=== PATIENT | female | born 1980 | race African-American/Black ===

== ENCOUNTER 2022-04-19 13:23 | Inpatient (IN) | payer MEDICARE, MEDICAID, SELFPAY ==
--- NOTE | 2022-04-19 13:42 | MHC.CARE ---
Pt was seen by N David in the community and is a bedsearch
[2022-04-19 13:45] VITALS: BP 118/74; BP 150/81; PULSE 71; PULSE 78; RESP 18; TEMP 36.8; O2SAT 98; O2SAT 99; BMI 21.4
--- NOTE | 2022-04-19 13:46 | ECG_ITS ---
Test Reason : MED CLEARANCE Blood Pressure : / mmHG Vent. Rate : 072 BPM Atrial Rate : 072 BPM P-R Int : 124 ms QRS Dur : 078 ms QT Int : 392 ms P-R-T Axes : 056 014 034 degrees QTc Int : 429 ms Normal sinus rhythm with sinus arrhythmia Septal infarct , age undetermined Abnormal ECG No previous ECGs available Referred By: Gaby Castellanos Electronically Signed By:ELY MATIAS
[2022-04-19 14:17] LABS: Appearance Urine Clear; Color Urine Yellow; Glucose Urine UA Negative (Negative); Leukocyte Esterase Urine Negative (Negative); Nitrite Urine Negative (Negative); PH 5.5 (5.0-9.0); Specific Gravity - Urine 1.025 (1.005-1.025); UMIC TRIGGER UACC YES; Urine Blood Trace (Negative); Urine Ketones 15 mg/dL (Negative); Urine Protein Trace mg/dL (Neg-Trace)
[2022-04-19 14:19] LABS: Bacteria Urine Trace (None Seen); Hyaline Casts Urine 0-2 /LPF (0-2); UPreg QC Valid YES; WBC Urine 0-5 /HPF (0-5)
[2022-04-19 14:20] LABS: Urine Pregnancy NEGATIVE (NEGATIVE)
[2022-04-19 14:30] LABS: MANUAL DIFF FLAG NO
[2022-04-19 14:31] LABS: Basophils Absolute Auto 0.1 X10*3/uL (0.0-0.2); Basophils Percent Auto 1.1 % (0-2); Eosinophils Absolute Auto 0.1 X10*3/uL (0.0-0.4); Eosinophils Percent Auto 1.8 % (0-4); Hematocrit 45.3 % (37.0-47.0); Hemoglobin 14.9 g/dl (12.0-16.0); Imm Gran Abs Auto 0.01 X10*3/uL (0.00-0.03); Imm Gran Pct Auto 0.2 % (0.0-0.4); Lymphocytes Absolute Auto 1.4 X10*3/uL (1.2-4.9); Lymphocytes Percent Auto 32.5 % (20-40); Mean Corpuscular HGB Conc 32.9 g/dl (31.0-35.0); Mean Corpuscular Hemoglobin 28.8 pg (27.0-33.0); Mean Corpuscular Volume 87.5 fL (80.0-98.0); Mean Platelet Volume 10.3 fL (9.4-12.3); Monocytes Absolute Auto 0.4 X10*3/uL (0.1-1.2); Monocytes Percent Auto 8.8 % (2-11); Neutrophils Absolute Auto 2.5 x10*3/uL (2.0-8.3); Neutrophils Percent Auto 55.6 % (45-73); Platelet Count 332 X10*3/uL (160-400); Red Blood Count 5.18 X10*6/uL (4.20-5.50); Red Cell Distribution Width 13.7 % (11.0-16.0); White Blood Count 4.4 X10*3/uL (4.8-10.8)
--- NOTE | 2022-04-19 14:33 | ED_ITS ---
HPI - Psych General Chief Complaint: Psychiatric Symptoms Stated Complaint: SI Time Seen by Provider: 04/19/22 13:45 Source: patient Mode of arrival: EMS Limitations: no limitations History of Present Illness HPI Narrative: Patient presents to the emergency department via EMS on a [address]. Patient presented to crisis office with a suicidal ideations and a plan to overdose on her medications. Patient with a history of schizophrenia and PTSD. Patient is unable to specify how long she has been feeling this way. It is difficult to obtain much history from patient as she appears to be responding to internal stimuli, difficulty concentrating on questions. Denies any physical complaints, denies pain. Denies any ill symptoms recently. Related Data Home Medications Medication Instructions Recorded Confirmed Acetaminophen Er 650 mg PO Q8H PRN Pain 04/19/22 04/19/22 albuterol sulfate 90 mcg/actuation 2 puff inhalation QID PRN Wheezing 04/19/22 04/19/22 aerosol inhaler aripiprazole 5 mg tablet (Abilify) 5 mg PO DAILY 04/19/22 04/19/22 epinephrine 0.3 mg/0.3 mL 0.3 mg IM Q4H PRN Anaphylaxis 04/19/22 04/19/22 injection, auto-injector fluticasone propionate 50 1 spray intranasal BID 04/19/22 04/19/22 mcg/actuation nasal spray,suspension Allergies Allergy/AdvReac Type Severity Reaction Status Date / Time banana Allergy Unknown Verified 04/19/22 13:45 grape Allergy Unknown Verified 04/19/22 13:45 shellfish derived Allergy Anaphylaxis Verified 04/19/22 13:45 Review of Systems Review of Systems: Yes Unobtainable due to mental status (difficulty responding to ROS questions, responding to internal stimuli) FORMERLY [facility], [facility] Past Medical History Attestation statement: The following information was validated with the patient. Social History Social History Advance Directives: No Advance Directives Information Provided: No Patient : No Physical Exam Vital Signs: Vital Signs: Last Vital Signs Temp 97.8 F 04/19/22 19:45 Pulse 78 04/19/22 19:45 Resp 15 04/19/22 19:45 BP 138/90 H 04/19/22 19:45 Pulse Ox 98 04/19/22 19:45 O2 Del Method 04/19/22 19:45 BMI result Body Mass Index 21.4 Appearance: Alert.?Oriented to person, place and time. No acute distress.? Was responding to internal stimuli Eyes: Pupils equal, round and reactive to light.? ENT: Pharynx normal.?? Neck: Normal inspection.? Neck supple.?? CVS: Heart sounds normal. Normal heart rate and rhythm.? Pulses normal.?? Respiratory: No respiratory distress.? Lung sounds clear to auscultation bilaterally?? Abdomen: Soft and non-tender. Normoactive bowel sounds? Skin: Skin warm and dry.? Normal skin color.? ?? Extremities: No lower extremity edema.?? Neuro: Moves all extremities spontaneously. Sensation intact bilaterally. CN II- XII intact. No focal neuro deficits. Ambulates with normal steady gait. Course Course Course Narrative: Patient is a 41-year-old female with a past medical history of schizophrenia and PTSD presenting to the emergency department for suicidal ideations with a plan to overdose on medications. She is vague at providing history, she appears to be responding to internal stimuli throughout majority of the time speaking with patient. Does not appear so patient has been to this hospital in the past, no medical records available for review. Uncertain whether any past suicide attempts have been made. Will obtain basic labs for medical clearance, uri nalysis, urine test, KIM in ethanol level. Patient will need to be referred to [facility] for further evaluation and safe disposition. Reevaluation(s) Reevaluation #1: Labs are overall unremarkable. COVID-19 testing is negative. Alcohol level is negative. Drug of abuse screen is negative. Patient currently in no apparent distress. Respirations are regular even and nonlabored. Patient speaking clearly. Patient will be placed in physician observation. The reason for observation is that patient requires additional time to be evaluated by behavioral health team for safe disposition planning giving her suicidal ideations. Time: 15:14 [facility] - Psych Medical Records Attestation: I reviewed the patient's medical records. Lab Data Attestation: I reviewed the patient's lab results. Result diagrams: 04/19/22 14:22 04/19/22 14:22 Labs: Lab Results 04/19/22 04/19/22 04/19/22 Range/Units 14:08 14:08 14:08 WBC (4.8-10.8) X10*3/uL RBC (4.20-5.50) X10*6/uL Hgb (12.0-16.0) g/dl Hct (37.0-47.0) % MCV (80.0-98.0) fL MCH (27.0-33.0) pg MCHC (31.0-35.0) g/dl RDW (11.0-16.0) % Plt Count (160-400) X10*3/uL MPV (9.4-12.3) fL Immature Gran % (Auto) (0.0-0.4) % Neut % (Auto) (45-73) % Lymph % (Auto) (20-40) % [place] % (Auto) (2-11) % Eos % (Auto) (0-4) % Baso % (Auto) (0-2) % Lymph # (Auto) (1.2-4.9) X10*3/uL [place] # (Auto) (0.1-1.2) X10*3/uL Eos # (Auto) (0.0-0.4) X10*3/uL Baso # (Auto) (0.0-0.2) X10*3/uL Abs Immat Gran (auto) (0.00-0.03) X10*3/uL Absolute Neuts (auto) (2.0-8.3) x10*3/uL Absolute Nucleated RBC (0.0-0.012) X10*3/uL Nucleated RBC % (auto) (0.0-0.2) /100WBC Sodium (135-145) mmol/L Potassium (3.3-5.1) mmol/L Chloride (96-108) mmol/L Carbon Dioxide (22-29) mmol/L Anion Gap (12-20) BUN (9-16) mg/dL Creatinine (0.5-1.4) mg/dL Estim Creat Clear Calc Estimated GFR Random Glucose (60-115) mg/dL Calcium (8.4-10.2) mg/dL Total Bilirubin (0.0-1.0) mg/dL AST (5-31) U/L ALT (0-31) U/L Alkaline Phosphatase (39-117) U/L Total Protein (6.5-8.0) g/dL Albumin (3.5-5.0) g/dL Urine Color Yellow Urine Appearance Clear Urine pH 5.5 (5.0-9.0) Ur Specific [place] 1.025 (1.005-1.025) Urine Protein Trace (Neg-Trace) mg/dL Urine Glucose (UA) Negative (Negative) mg/dL Urine Ketones 15 (Negative) mg/dL Urine Blood Trace H (Negative) Urine Nitrite Negative (Negative) Ur Leukocyte Esterase Negative (Negative) Urine RBC 6-10 H (0-2) /HPF Urine WBC 0-5 (0-5) /HPF Ur Squamous Epith Cells 3-5 (0-2) /HPF Urine Bacteria Trace (None Seen) Hyaline Casts 0-2 (0-2) /LPF Urine Test NEGATIVE (NEGATIVE) Urine Opiates Screen (Not Detect) Urine Fentanyl Screen (Not Detect) Ur Barbiturates Screen (Not Detect) Ur Phencyclidine Scrn (Not Detect) Ur Amphetamines Screen (Not Detect) U Benzodiazepines Scrn (Not Detect) Urine Cocaine Screen (Not Detect) U Marijuana (THC) Screen (Not Detect) Ethyl Alcohol mg/dL COVID-19 (MELINA) Negative (Negative) COVID-19 Clin Com See Note 04/19/22 04/19/22 04/19/22 Range/Units 14:08 14:22 14:22 WBC 4.4 L (4.8-10.8) X10*3/uL RBC 5.18 (4.20-5.50) X10*6/uL Hgb 14.9 (12.0-16.0) g/dl Hct 45.3 (37.0-47.0) % MCV 87.5 (80.0-98.0) fL MCH 28.8 (27.0-33.0) pg MCHC 32.9 (31.0-35.0) g/dl RDW 13.7 (11.0-16.0) % Plt Count 332 (160-400) X10*3/uL MPV 10.3 (9.4-12.3) fL Immature Gran % (Auto) 0.2 (0.0-0.4) % Neut % (Auto) 55.6 (45-73) % Lymph % (Auto) 32.5 (20-40) % [place] % (Auto) 8.8 (2-11) % Eos % (Auto) 1.8 (0-4) % Baso % (Auto) 1.1 (0-2) % Lymph # (Auto) 1.4 (1.2-4.9) X10*3/uL [place] # (Auto) 0.4 (0.1-1.2) X10*3/uL Eos # (Auto) 0.1 (0.0-0.4) X10*3/uL Baso # (Auto) 0.1 (0.0-0.2) X10*3/uL Abs Immat Gran (auto) 0.01 (0.00-0.03) X10*3/uL Absolute Neuts (auto) 2.5 (2.0-8.3) x10*3/uL Absolute Nucleated RBC 0.000 (0.0-0.012) X10*3/uL Nucleated RBC % (auto) 0.0 (0.0-0.2) /100WBC Sodium 141 (135-145) mmol/L Potassium 3.8 (3.3-5.1) mmol/L Chloride 104 (96-108) mmol/L Carbon Dioxide 24 (22-29) mmol/L Anion Gap 17 (12-20) BUN 14 (9-16) mg/dL Creatinine 0.83 (0.5-1.4) mg/dL Estim Creat Clear Calc 64.0 Estimated GFR > 60 Random Glucose 90 (60-115) mg/dL Calcium 9.6 (8.4-10.2) mg/dL Total Bilirubin 0.6 (0.0-1.0) mg/dL AST 15 (5-31) U/L ALT 15 (0-31) U/L Alkaline Phosphatase 70 (39-117) U/L Total Protein 7.5 (6.5-8.0) g/dL Albumin 4.4 (3.5-5.0) g/dL Urine Color Urine Appearance Urine pH (5.0-9.0) Ur Specific [place] (1.005-1.025) Urine Protein (Neg-Trace) mg/dL Urine Glucose (UA) (Negative) mg/dL Urine Ketones (Negative) mg/dL Urine Blood (Negative) Urine Nitrite (Negative) Ur Leukocyte Esterase (Negative) Urine RBC (0-2) /HPF Urine WBC (0-5) /HPF Ur Squamous Epith Cells (0-2) /HPF Urine Bacteria (None Seen) Hyaline Casts (0-2) /LPF Urine Test (NEGATIVE) Urine Opiates Screen Not Detected (Not Detect) Urine Fentanyl Screen Not Detected (Not Detect) Ur Barbiturates Screen Not Detected (Not Detect) Ur Phencyclidine Scrn Not Detected (Not Detect) Ur Amphetamines Screen Not Detected (Not Detect) U Benzodiazepines Scrn Not Detected (Not Detect) Urine Cocaine Screen Not Detected (Not Detect) U Marijuana (THC) Screen Not Detected (Not Detect) Ethyl Alcohol < 10 mg/dL COVID-19 (MELINA) (Negative) COVID-19 Clin Com Discharge Plan Discharge Clinical Impression: Schizophrenia, PTSD (post-traumatic stress disorder), Suicidal ideation Patient Disposition: Still a Patient Prescriptions: No Action Acetaminophen Er 650 mg PO Q8H PRN (Reason: Pain) epinephrine 0.3 mg/0.3 mL Auto-Injector 0.3 mg IM Q4H PRN (Reason: Anaphylaxis) albuterol sulfate 90 mcg/actuation Hfa Aerosol Inhaler 2 puff INHALATION QID PRN (Reason: Wheezing) fluticasone propionate 50 mcg/actuation [place],Suspension 1 spray INTRANASAL BID Rx Instructions: administer into each nostril aripiprazole [Abilify] 5 mg Tablet 5 mg PO DAILY
[2022-04-19 14:38] LABS: Benzodiazepines Screen Urine Not Detected (Not Detect); Cannabinoid Screen Urine Not Detected (Not Detect); Fentanyl, urine Not Detected (Not Detect); Phencyclidine Screen Urine Not Detected (Not Detect)
[2022-04-19 14:40] LABS: Amphetamine Screen Urine Not Detected (Not Detect); Barbiturates, Urine Not Detected (Not Detect); Cocaine Screen Urine Not Detected (Not Detect); Opiate Screen Urine Not Detected (Not Detect)
[2022-04-19 14:46] LABS: COVID-19 Test Negative (Negative); IDNOW Serial# 9DB6401D
[2022-04-19 14:50] LABS: Alanine Aminotransferase 15 U/L (0-31); Albumin Level 4.4 g/dL (3.5-5.0); Alkaline Phosphatase 70 U/L (39-117); Anion Gap 17 (12-20); Aspartate Amino Transferase 15 U/L (5-31); Bilirubin Total 0.6 mg/dL (0.0-1.0); Blood Urea Nitrogen 14 mg/dL (9-16); Calcium 9.6 mg/dL (8.4-10.2); Carbon Dioxide 24 mmol/L (22-29); Chloride 104 mmol/L (96-108); Estimated Glomerular Filt Rate > 60; Ethanol < 10 mg/dL; Glucose Random 90 mg/dL (60-115); Potassium 3.8 mmol/L (3.3-5.1); Sodium 141 mmol/L (135-145); Total Protein 7.5 g/dL (6.5-8.0)
[2022-04-19 16:00] VITALS: RESP 16
--- NOTE | 2022-04-19 16:03 | PHA.MEDREC ---
Pharmacy Consult ? Medication Reconciliation Pharmacy has completed the medication reconciliation.
--- NOTE | 2022-04-19 17:25 | PC.NURSE ---
Contact made by Thierry from [facility]. Per Thierry, pt is to be accepted to [facility] today at some point, no eta
[2022-04-19] MEDS: ARIPiprazole 5 MG TABLET PO (19:36)
[2022-04-19 19:45] VITALS: BP 138/90; PULSE 78; RESP 15; TEMP 36.6; O2SAT 98
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
[2022-04-19] MEDS: hydrOXYzine HCL 25 MG TABLET PO (23:13)
--- NOTE | 2022-04-20 | ECG_ITS ---
Test Reason : ? septal infarct Blood Pressure : / mmHG Vent. Rate : 077 BPM Atrial Rate : 077 BPM P-R Int : 132 ms QRS Dur : 084 ms QT Int : 368 ms P-R-T Axes : 062 010 039 degrees QTc Int : 416 ms Normal sinus rhythm Septal infarct (cited on or before 19-APR-2022) Abnormal ECG When compared with ECG of 19-APR-2022 14:30, No significant change was found Referred By: Leigh Robin Electronically Signed By:ELY MATIAS
[2022-04-20] MEDS: ARIPiprazole 5 MG TABLET PO (09:22)
[2022-04-20 09:27] VITALS: BP 133/96; PULSE 94; RESP 17; TEMP 36.6; O2SAT 100
[2022-04-20 09:45] LABS: Estimated Average Glucose 114 mg/dL; Hemoglobin A1c % 5.6 %
[2022-04-20 09:55] LABS: Cholesterol 179 mg/dL; HDL Cholesterol 48 mg/dL; LDL Cholesterol Calculated 121 mg/dl; Magnesium 1.9 mg/dL (1.6-2.6); Triglycerides 50 mg/dL
[2022-04-20 10:18] LABS: Free T4 (Free Thyroxine) 1.19 ng/dL (0.71-1.85); Thyroid Stimulating Hormone 0.74 uIU/mL (0.32-4.0)
--- NOTE | 2022-04-20 10:35 | P.HPPS_ITS ---
HPI Date of Service: 04/20/22 Chief Complaint: SI, Depression Sources of Information: patient interviewed, chart reviewed and crisis/core team assessment reviewed HPI Subjective Notes: Evans Warning and Conditional Voluntary Narrative: Ms. Castellano is a 41 year-old woman with hx of schizophrenia. Pt was assessed by [facility] crisis after she called them and reported struggling with life, something is not right. Pt expressed suicidal ideation with vague plan. However, pt apparently presented as disorganized, delayed response rate, internally preoccupied. Her utox was neg in th ED. On the unit, pt presents as initially guarded and suspicious of this process description writer. She is at times seen laughing inappropriately. She is very suspicious about me dications. She reports she was feeling depressed, I was going through somethings. She would not elaborate as to what stressors she had. She then reports when can I go home? She denies VH/AH but appears internally preoccupied. Her speech is disorganized and she is unable to provide much information about events leading to this admission or past psychiatric history or her current supports in the community. She denies any plan or intent to hurt herself. Pt often scanning the room, guarded when staff approaches her, somewhat hypervigilant, but no overt delusional content reported. Past Psychiatric History: Inpatient: 2000, 1998 somewhere in [place]. Respite N: 04/07-04/10 left AMA. Medical Evaluation Reviewed: Yes repeat EGK- shows septal infact no s/s of acute infart- did order troponin <3.5 PMFSH Family History: unknown Social History: lives along in apartment. She has never been nor she has children. Apparently she does work at [employer]. Substance History: none Trauma History: none disclosed. Diagnostics Vital Signs (24Hr): Vital Signs - 24 hr 04/19/22 13:45 04/19/22 16:00 04/19/22 19:45 Temperature 98.3 F 97.8 F Pulse Rate 71 78 Respiratory Rate 18 16 15 Blood Pressure 150/81 H 138/90 H Pulse Oximetry 99 98 Oxygen Delivery Method Room Air Room Air 04/20/22 09:27 Temperature 97.8 F Pulse Rate 94 Respiratory Rate 17 Blood Pressure 133/96 H Pulse Oximetry 100 Oxygen Delivery Method Room Air BMI result Body Mass Index 21.4 Labs Results: 04/19/22 14:22 04/19/22 14:22 Labs: Laboratory Results - last 48 hr 04/19/22 04/19/22 04/19/22 14:08 14:08 14:08 WBC RBC Hgb Hct MCV MCH MCHC RDW Plt Count MPV Immature Gran % (Auto) Neut % (Auto) Lymph % (Auto) [place] % (Auto) Eos % (Auto) Baso % (Auto) Lymph # (Auto) [place] # (Auto) Eos # (Auto) Baso # (Auto) Abs Immat Gran (auto) Absolute Neuts (auto) Absolute Nucleated RBC Nucleated RBC % (auto) Sodium Potassium Chloride Carbon Dioxide Anion Gap BUN Creatinine Estim Creat Clear Calc Estimated GFR Random Glucose Estimat Average Glucose Hemoglobin A1c % Calcium Magnesium Total Bilirubin AST ALT Alkaline Phosphatase Total Protein Albumin Triglycerides Cholesterol LDL Cholesterol, Calc HDL Cholesterol TSH Free T4 Urine Color Yellow Urine Appearance Clear Urine pH 5.5 Ur Specific [place] 1.025 Urine Protein Trace Urine Glucose (UA) Negative Urine Ketones 15 Urine Blood Trace H Urine Nitrite Negative Ur Leukocyte Esterase Negative Urine RBC 6-10 H Urine WBC 0-5 Ur Squamous Epith Cells 3-5 Urine Bacteria Trace Hyaline Casts 0-2 Urine Test NEGATIVE Urine Opiates Screen Urine Fentanyl Screen Ur Barbiturates Screen Ur Phencyclidine Scrn Ur Amphetamines Screen U Benzodiazepines Scrn Urine Cocaine Screen U Marijuana (THC) Screen Ethyl Alcohol COVID-19 (MELINA) Negative COVID-19 Clin Com See Note 04/19/22 04/19/22 04/19/22 14:08 14:22 14:22 WBC 4.4 L RBC 5.18 Hgb 14.9 Hct 45.3 MCV 87.5 MCH 28.8 MCHC 32.9 RDW 13.7 Plt Count 332 MPV 10.3 Immature Gran % (Auto) 0.2 Neut % (Auto) 55.6 Lymph % (Auto) 32.5 [place] % (Auto) 8.8 Eos % (Auto) 1.8 Baso % (Auto) 1.1 Lymph # (Auto) 1.4 [place] # (Auto) 0.4 Eos # (Auto) 0.1 Baso # (Auto) 0.1 Abs Immat Gran (auto) 0.01 Absolute Neuts (auto) 2.5 Absolute Nucleated RBC 0.000 Nucleated RBC % (auto) 0.0 Sodium 141 Potassium 3.8 Chloride 104 Carbon Dioxide 24 Anion Gap 17 BUN 14 Creatinine 0.83 Estim Creat Clear Calc 64.0 Estimated GFR > 60 Random Glucose 90 Estimat Average Glucose Hemoglobin A1c % Calcium 9.6 Magnesium Total Bilirubin 0.6 AST 15 ALT 15 Alkaline Phosphatase 70 Total Protein 7.5 Albumin 4.4 Triglycerides Cholesterol LDL Cholesterol, Calc HDL Cholesterol TSH Free T4 Urine Color Urine Appearance Urine pH Ur Specific [place] Urine Protein Urine Glucose (UA) Urine Ketones Urine Blood Urine Nitrite Ur Leukocyte Esterase Urine RBC Urine WBC Ur Squamous Epith Cells Urine Bacteria Hyaline Casts Urine Test Urine Opiates Screen Not Detected Urine Fentanyl Screen Not Detected Ur Barbiturates Screen Not Detected Ur Phencyclidine Scrn Not Detected Ur Amphetamines Screen Not Detected U Benzodiazepines Scrn Not Detected Urine Cocaine Screen Not Detected U Marijuana (THC) Screen Not Detected Ethyl Alcohol < 10 COVID-19 (MELINA) COVID-19 [employer] 04/20/22 04/20/22 08:48 08:48 WBC RBC Hgb Hct MCV MCH MCHC RDW Plt Count MPV Immature Gran % (Auto) Neut % (Auto) Lymph % (Auto) [place] % (Auto) Eos % (Auto) Baso % (Auto) Lymph # (Auto) [place] # (Auto) Eos # (Auto) Baso # (Auto) Abs Immat Gran (auto) Absolute Neuts (auto) Absolute Nucleated RBC Nucleated RBC % (auto) Sodium Potassium Chloride Carbon Dioxide Anion Gap BUN Creatinine Estim Creat Clear Calc Estimated GFR Random Glucose Estimat Average Glucose 114 Hemoglobin A1c % 5.6 Calcium Magnesium 1.9 Total Bilirubin AST ALT Alkaline Phosphatase Total Protein Albumin Triglycerides 50 Cholesterol 179 LDL Cholesterol, Calc 121 HDL Cholesterol 48 TSH 0.74 Free T4 1.19 Urine Color Urine Appearance Urine pH Ur Specific [place] Urine Protein Urine Glucose (UA) Urine Ketones Urine Blood Urine Nitrite Ur Leukocyte Esterase Urine RBC Urine WBC Ur Squamous Epith Cells Urine Bacteria Hyaline Casts Urine Test Urine Opiates Screen Urine Fentanyl Screen Ur Barbiturates Screen Ur Phencyclidine Scrn Ur Amphetamines Screen U Benzodiazepines Scrn Urine Cocaine Screen U Marijuana (THC) Screen Ethyl Alcohol COVID-19 (MELINA) COVID-19 [employer] Meds/Allergies Meds Home Medications Medication Instructions Recorded Confirmed Type Acetaminophen Er 650 mg PO Q8H PRN Pain 04/19/22 04/19/22 History albuterol sulfate 90 mcg/actuation 2 puff inhalation QID PRN Wheezing 04/19/22 04/19/22 History aerosol inhaler aripiprazole 5 mg tablet (Abilify) 5 mg PO DAILY 04/19/22 04/19/22 History epinephrine 0.3 mg/0.3 mL 0.3 mg IM Q4H PRN Anaphylaxis 04/19/22 04/19/22 History injection, auto-injector fluticasone propionate 50 1 spray intranasal BID 04/19/22 04/19/22 History mcg/actuation nasal spray,suspension Allergies Allergies Allergy/AdvReac Type Severity Reaction Status Date / Time banana Allergy Unknown Verified 04/19/22 13:45 grape Allergy Unknown Verified 04/19/22 13:45 shellfish derived Allergy Anaphylaxis Verified 04/19/22 13:45 Mental Status Exam Mental Status Exam Narrative: Appearance: wearing hospital gown, fair hygiene in NAD Behavior: guarded psychomotor:some retardation noted Speech: mumble, soft tone, minimally spontaneous Thought process:disorganized, Thought content:feeling depressed, but now not so much, asking when she could go home Mood: depressed Affect: constricted, at times laughing inappropriately as if responding to internal stimuli SI:none HI:none VH/AH: denies but appears internally preoccupied Delusions:appears paranoid Insight/judgment:poor x 2. Memory/cog: alert, oriented x3. not formally tested Assessment & Plan Assessment & Plan (1) Schizophrenia: Status: Acute Code(s): F20.9 - Schizophrenia, unspecified Plan Ms. Castellano is a 41 year-old woman with hx of schizophrenia. Per [facility] records she initially called [facility] reporting suicidal ideation. Her reports as to why she feels depressed and other factors affecting her mood were vague, and she appeared internally preoccupied. In the ED utox negative. On the unit presents as guarded suspicious with episodes of laughing inappropriately at times, appears internally preoccupied. EKG showed septal infarct, troponin completed less than 3.5, no s/s of acute pathology at this point. We discussed risks, benefits and alternative treatment options, will start risperidone, ativan. PLAN 1. Admit M3, CV, 15 minutes checks for safety. 2. start risperidone 1mg po BID, ativan 0.5mg po BID 3. obtain collateral information 4. Aftercare planning. Patient educated on: diagnosis Reason for continued inpatient stay Substantial Risk for: harm to self and inability to function
[2022-04-20 10:38] LABS: Folate 9.8 ng/mL (> or = 4.0); Vitamin B12 375 pg/mL (200-900)
[2022-04-20 14:57] LABS: Troponin-I High Sensitivity < 3.5 ng/L (<3.5-17.0)
[2022-04-20 21:00] VITALS: BP 138/83; PULSE 83; RESP 16; TEMP 36.4
[2022-04-20] MEDS: LORazepam 0.5 MG TABLET PO (22:20)
[2022-04-20] MEDS: risperiDONE 1 MG TABLET PO (22:21)
[2022-04-21 08:30] VITALS: BP 112/77; PULSE 106; RESP 18; TEMP 36.5; O2SAT 99
[2022-04-21] MEDS: risperiDONE 1 MG TABLET PO (08:58)
[2022-04-21] MEDS: LORazepam 0.5 MG TABLET PO ×2 (08:58→22:43)
--- NOTE | 2022-04-21 11:30 | P.PNPSI_ITS ---
Subjective Subjective Date of Service: 04/21/22 Reason For Visit: SI, Depression Subjective Notes: Conditional Voluntary Interim History: The nursing staff reported the patient has attended to a few groups she looks anxious and confused with minimal response. On interview the patient reports that she feels over-sedated will risperidone 1 mg p.o. b.i.d.. We discussed options and she agreed to change to risperidone everything at night so she will be more awake during the day. She denies active suicidal ideation or auditory hallucinations but she looks internally preoccupied. Mental Status Exam Mental Status Exam Patient Appearance: Appropriate Patient Orientation: Person, Place and Situation Level of Consciousness: Awake Patient Behavior: Cooperative Mood Description: Withdrawn Affect Description: Constricted Patient Cognition Impaired: No Ability to Follow Directions: Good Speech Pattern: Clear Hallucinations: None Delusions: Paranoid Ideation Thought Process: Confusion Thought Content: positive for [place] and positive for Circumstantial Judgement: Fair Diagnostics Vital Signs (24Hr): Vital Signs - 24 hr 04/20/22 21:00 04/21/22 08:30 Temperature 97.6 F 97.7 F Pulse Rate 83 106 H Respiratory Rate 16 18 Blood Pressure 138/83 112/77 Pulse Oximetry 99 Oxygen Delivery Method Room Air BMI result Body Mass Index 21.4 Labs Results: 04/19/22 14:22 04/19/22 14:22 Labs: Laboratory Results - last 48 hr 04/19/22 04/19/22 04/19/22 14:08 14:08 14:08 WBC RBC Hgb Hct MCV MCH MCHC RDW Plt Count MPV Immature Gran % (Auto) Neut % (Auto) Lymph % (Auto) [place] % (Auto) Eos % (Auto) Baso % (Auto) Lymph # (Auto) [place] # (Auto) Eos # (Auto) Baso # (Auto) Abs Immat Gran (auto) Absolute Neuts (auto) Absolute Nucleated RBC Nucleated RBC % (auto) Sodium Potassium Chloride Carbon Dioxide Anion Gap BUN Creatinine Estim Creat Clear Calc Estimated GFR Random Glucose Estimat Average Glucose Hemoglobin A1c % Calcium Magnesium Total Bilirubin AST ALT Alkaline Phosphatase Troponin I High Sens Total Protein Albumin Triglycerides Cholesterol LDL Cholesterol, Calc HDL Cholesterol Vitamin B12 Folate TSH Free T4 Urine Color Yellow Urine Appearance Clear Urine pH 5.5 Ur Specific [place] 1.025 Urine Protein Trace Urine Glucose (UA) Negative Urine Ketones 15 Urine Blood Trace H Urine Nitrite Negative Ur Leukocyte Esterase Negative Urine RBC 6-10 H Urine WBC 0-5 Ur Squamous Epith Cells 3-5 Urine Bacteria Trace Hyaline Casts 0-2 Urine Test NEGATIVE Urine Opiates Screen Urine Fentanyl Screen Ur Barbiturates Screen Ur Phencyclidine Scrn Ur Amphetamines Screen U Benzodiazepines Scrn Urine Cocaine Screen U Marijuana (THC) Screen Ethyl Alcohol COVID-19 ([facility]) Negative COVID-19 Clin Com See Note 04/19/22 04/19/22 04/19/22 14:08 14:22 14:22 WBC 4.4 L RBC 5.18 Hgb 14.9 Hct 45.3 MCV 87.5 MCH 28.8 MCHC 32.9 RDW 13.7 Plt Count 332 MPV 10.3 Immature Gran % (Auto) 0.2 Neut % (Auto) 55.6 Lymph % (Auto) 32.5 [place] % (Auto) 8.8 Eos % (Auto) 1.8 Baso % (Auto) 1.1 Lymph # (Auto) 1.4 [place] # (Auto) 0.4 Eos # (Auto) 0.1 Baso # (Auto) 0.1 Abs Immat Gran (auto) 0.01 Absolute Neuts (auto) 2.5 Absolute Nucleated RBC 0.000 Nucleated RBC % (auto) 0.0 Sodium 141 Potassium 3.8 Chloride 104 Carbon Dioxide 24 Anion Gap 17 BUN 14 Creatinine 0.83 Estim Creat Clear Calc 64.0 Estimated GFR > 60 Random Glucose 90 Estimat Average Glucose Hemoglobin A1c % Calcium 9.6 Magnesium Total Bilirubin 0.6 AST 15 ALT 15 Alkaline Phosphatase 70 Troponin I High Sens Total Protein 7.5 Albumin 4.4 Triglycerides Cholesterol LDL Cholesterol, Calc HDL Cholesterol Vitamin B12 Folate TSH Free T4 Urine Color Urine Appearance Urine pH Ur Specific [place] Urine Protein Urine Glucose (UA) Urine Ketones Urine Blood Urine Nitrite Ur Leukocyte Esterase Urine RBC Urine WBC Ur Squamous Epith Cells Urine Bacteria Hyaline Casts Urine Test Urine Opiates Screen Not Detected Urine Fentanyl Screen Not Detected Ur Barbiturates Screen Not Detected Ur Phencyclidine Scrn Not Detected Ur Amphetamines Screen Not Detected U Benzodiazepines Scrn Not Detected Urine Cocaine Screen Not Detected U Marijuana (THC) Screen Not Detected Ethyl Alcohol < 10 COVID-19 ([facility]) COVID-19 Clin Com 04/20/22 04/20/22 04/20/22 08:48 08:48 08:48 WBC RBC Hgb Hct MCV MCH MCHC RDW Plt Count MPV Immature Gran % (Auto) Neut % (Auto) Lymph % (Auto) [place] % (Auto) Eos % (Auto) Baso % (Auto) Lymph # (Auto) [place] # (Auto) Eos # (Auto) Baso # (Auto) Abs Immat Gran (auto) Absolute Neuts (auto) Absolute Nucleated RBC Nucleated RBC % (auto) Sodium Potassium Chloride Carbon Dioxide Anion Gap BUN Creatinine Estim Creat Clear Calc Estimated GFR Random Glucose Estimat Average Glucose 114 Hemoglobin A1c % 5.6 Calcium Magnesium 1.9 Total Bilirubin AST ALT Alkaline Phosphatase Troponin I High Sens Total Protein Albumin Triglycerides 50 Cholesterol 179 LDL Cholesterol, Calc 121 HDL Cholesterol 48 Vitamin B12 375 Folate 9.8 TSH 0.74 Free T4 1.19 Urine Color Urine Appearance Urine pH Ur Specific [place] Urine Protein Urine Glucose (UA) Urine Ketones Urine Blood Urine Nitrite Ur Leukocyte Esterase Urine RBC Urine WBC Ur Squamous Epith Cells Urine Bacteria Hyaline Casts Urine Test Urine Opiates Screen Urine Fentanyl Screen Ur Barbiturates Screen Ur Phencyclidine Scrn Ur Amphetamines Screen U Benzodiazepines Scrn Urine Cocaine Screen U Marijuana (THC) Screen Ethyl Alcohol COVID-19 ([facility]) COVID-[facility] 04/20/22 14:30 WBC RBC Hgb Hct MCV MCH MCHC RDW Plt Count MPV Immature Gran % (Auto) Neut % (Auto) Lymph % (Auto) [place] % (Auto) Eos % (Auto) Baso % (Auto) Lymph # (Auto) [place] # (Auto) Eos # (Auto) Baso # (Auto) Abs Immat Gran (auto) Absolute Neuts (auto) Absolute Nucleated RBC Nucleated RBC % (auto) Sodium Potassium Chloride Carbon Dioxide Anion Gap BUN Creatinine Estim Creat Clear Calc Estimated GFR Random Glucose Estimat Average Glucose Hemoglobin A1c % Calcium Magnesium Total Bilirubin AST ALT Alkaline Phosphatase Troponin I High Sens < 3.5 Total Protein Albumin Triglycerides Cholesterol LDL Cholesterol, Calc HDL Cholesterol Vitamin B12 Folate TSH Free T4 Urine Color Urine Appearance Urine pH Ur Specific [place] Urine Protein Urine Glucose (UA) Urine Ketones Urine Blood Urine Nitrite Ur Leukocyte Esterase Urine RBC Urine WBC Ur Squamous Epith Cells Urine Bacteria Hyaline Casts Urine Test Urine Opiates Screen Urine Fentanyl Screen Ur Barbiturates Screen Ur Phencyclidine Scrn Ur Amphetamines Screen U Benzodiazepines Scrn Urine Cocaine Screen U Marijuana (THC) Screen Ethyl Alcohol COVID-19 ([facility]ELINA) COVID-19 [employer] Com Medications Medications Current Medications Acetaminophen (Acetaminophen 325 Mg Tablet) 650 mg PO Q8H PRN PRN Reason: Pain, Moderate (Pain Scale 4-6 Al Hydroxide/Mg Hydroxide (Magnesium Hydrox/Alum Hydrox 30 Ml Oral.Susp) 30 ml PO Q6H PRN PRN Reason: Heartburn/Nausea Albuterol Sulfate (Albuterol Sulfate 90 Mcg 8 Gm Inhaler) 2 puff INHALE QID PRN PRN Reason: Wheezing Fluticasone Propionate (Fluticasone Propionate Nasal 16 Gm [place]) 1 spray NOSTRIL-B BID [facility] Last Admin: 04/20/22 22:30 Dose: Not Given Hydroxyzine HCl (Hydroxyzine Hcl 25 Mg Tablet) 25 mg PO Q6H PRN PRN Reason: Anxiety Last Admin: 04/19/22 23:13 Dose: 25 mg Lorazepam (Lorazepam 0.5 Mg Tablet) 0.5 mg PO BID [facility] Last Admin: 04/21/22 08:58 Dose: 0.5 mg Magnesium Hydroxide (Milk Of Magnesia 30 Ml Oral.Susp) 30 ml PO DAILY PRN PRN Reason: Constipation Risperidone (Risperidone 1 Mg Tablet) 1 mg PO BID [facility] Last Admin: 04/21/22 08:58 Dose: 1 mg Trazodone HCl (Trazodone Hcl 50 Mg Tablet) 50 mg PO BEDTIME PRN PRN Reason: Insomnia Allergies Allergies Allergy/AdvReac Type Severity Reaction Status Date / Time banana Allergy Unknown Verified 04/19/22 13:45 grape Allergy Unknown Verified 04/19/22 13:45 shellfish derived Allergy Anaphylaxis Verified 04/19/22 13:45 Assessment & Plan Assessment & Plan (1) Schizophrenia: Status: Acute Code(s): F20.9 - Schizophrenia, unspecified Plan Ms. Castellano is a 41 year-old woman with hx of schizophrenia. Per [facility] records she initially called [facility] reporting suicidal ideation. Her reports as to why she feels depressed and other factors affecting her mood were vague, and she appeared internally preoccupied. In the ED utox negative. On the unit presents as guarded suspicious with episodes of laughing inappropriately at times, appears internally preoccupied. EKG showed septal infarct, troponin completed less than 3.5, no s/s of acute pathology at this point. We discussed risks, benefits and alternative treatment options, will start risperidone, ativan. PLAN 1. Admit M3, CV, 15 minutes checks for safety. 2. start risperidone 1mg po BID, ativan 0.5mg po BID on admission. Later on 04/21 Risperdal changed to 2 mg po qhs 3. obtain collateral information 4. Aftercare planning. I spent ___20___ minutes with the patient and/or on the patient floor today, greater than?50% of which was spent counseling/coordinating care. Reason for contiued inpatient stay Substantial Risk for: inability to function, rapid decompensation and med/psych decompensation
[2022-04-21] MEDS: Fluticasone Propionate Nasal 16 GM SPRAY 1 SPRAY NOSTRIL-B ×2 (15:06→22:49)
[2022-04-21 21:45] VITALS: BP 134/91; PULSE 86; RESP 16; TEMP 36.3; O2SAT 98
[2022-04-21] MEDS: risperiDONE 2 MG TABLET PO (22:47)
--- NOTE | 2022-04-21 23:00 | PC.NURSE ---
Pt scheduled to change risperdal dosing from 1 mg BID to 2 mg HS, starting 04/21; however, pt already received 1 mg in the morning of 04/21 at 0858. TW administered 1/2 of scheduled 2 mg tablet at bedtime, for a total daily dose of 2 mg. Pt will receive once daily dose of 2 mg at bedtime, starting 04/22 per order.
[2022-04-22 08:20] VITALS: BP 109/78; PULSE 88; RESP 18; TEMP 36.4; O2SAT 100
[2022-04-22] MEDS: LORazepam 0.5 MG TABLET PO ×2 (09:31→21:41)
[2022-04-22] MEDS: Fluticasone Propionate Nasal 16 GM SPRAY 1 SPRAY NOSTRIL-B (09:31)
--- NOTE | 2022-04-22 12:22 | P.PNPSI_ITS ---
Subjective Subjective Date of Service: 04/22/22 Reason For Visit: SI, Depression Subjective Notes: Conditional Voluntary Interim History: The nursing staff reported the patient had been compliant with treatment, she denies new symptoms. She reported over-sedation with Risperdal in the morning so we changed yesterday to 2 mg p.o. q.h.s.. On interview the patient was pleasant, with limited eye contact and slightly paranoid but she adamantly denies auditory hallucinations. Mental Status Exam Mental Status Exam Patient Appearance: Well Grooomed Patient Orientation: Person, Place, Time and Situation Level of Consciousness: Appropriate Mood Description: Constricted Affect Description: Calm Patient Cognition Impaired: No Ability to Follow Directions: Good Speech Pattern: Clear Hallucinations: None Delusions: Paranoid Ideation Thought Process: Linear Judgement: Fair Diagnostics Vital Signs (24Hr): Vital Signs - 24 hr 04/21/22 21:45 04/22/22 08:20 Temperature 97.4 F 97.6 F Pulse Rate 86 88 Respiratory Rate 16 18 Blood Pressure 134/91 H 109/78 Pulse Oximetry 98 100 Oxygen Delivery Method Room Air Room Air Nasal Cannula BMI result Body Mass Index 21.4 Labs Results: 04/19/22 14:22 04/19/22 14:22 Labs: Laboratory Results - last 48 hr 04/20/22 14:30 Troponin I High Sens < 3.5 Medications Medications Current Medications Acetaminophen (Acetaminophen 325 Mg Tablet) 650 mg PO Q8H PRN PRN Reason: Pain, Moderate (Pain Scale 4-6 Al Hydroxide/Mg Hydroxide (Magnesium Hydrox/Alum Hydrox 30 Ml Oral.Susp) 30 ml PO Q6H PRN PRN Reason: Heartburn/Nausea Albuterol Sulfate (Albuterol Sulfate 90 Mcg 8 Gm Inhaler) 2 puff INHALE QID PRN PRN Reason: Wheezing Fluticasone Propionate (Fluticasone Propionate Nasal 16 Gm [place]) 1 spray NOSTRIL-B BID [facility] Last Admin: 04/22/22 09:31 Dose: 1 spray Hydroxyzine HCl (Hydroxyzine Hcl 25 Mg Tablet) 25 mg PO Q6H PRN PRN Reason: Anxiety Last Admin: 04/19/22 23:13 Dose: 25 mg Lorazepam (Lorazepam 0.5 Mg Tablet) 0.5 mg PO BID [facility] Last Admin: 04/22/22 09:31 Dose: 0.5 mg Magnesium Hydroxide (Milk Of Magnesia 30 Ml Oral.Susp) 30 ml PO DAILY PRN PRN Reason: Constipation Risperidone (Risperidone 2 Mg Tablet) 2 mg PO BEDTIME [facility] Last Admin: 04/21/22 22:47 Dose: 1 mg Trazodone HCl (Trazodone Hcl 50 Mg Tablet) 50 mg PO BEDTIME PRN PRN Reason: Insomnia Allergies Allergies Allergy/AdvReac Type Severity Reaction Status Date / Time banana Allergy Unknown Verified 04/19/22 13:45 grape Allergy Unknown Verified 04/19/22 13:45 shellfish derived Allergy Anaphylaxis Verified 04/19/22 13:45 Assessment & Plan Assessment & Plan (1) Schizophrenia: Status: Acute Code(s): F20.9 - Schizophrenia, unspecified Plan Ms. Castellano is a 41 year-old woman with hx of schizophrenia. Per [facility] records she initially called [facility] reporting suicidal ideation. Her reports as to why she feels depressed and other factors affecting her mood were vague, and she appeared internally preoccupied. In the ED utox negative. On the unit presents as guarded suspicious with episodes of laughing inappropriately at times, appears internally preoccupied. EKG showed septal infarct, troponin completed less than 3.5, no s/s of acute pathology at this point. We discussed risks, benefits and alternative treatment options, will start risperidone, ativan. PLAN 1. Admit M3, CV, 15 minutes checks for safety. 2. start risperidone 1mg po BID, ativan 0.5mg po BID on admission. Later on 04/21 Risperdal changed to 2 mg po qhs but nursing started doing the med changes on 04/22 3. obtain collateral information 4. Aftercare planning. I spent __20____ minutes with the patient and/or on the patient floor today, greater than?50% of which was spent counseling/coordinating care. Reason for contiued inpatient stay Substantial Risk for: inability to function, rapid decompensation and med/psych decompensation
[2022-04-22 20:54] VITALS: BP 122/81; PULSE 104; RESP 16; TEMP 36.4; O2SAT 98
[2022-04-22] MEDS: risperiDONE 2 MG TABLET PO (21:41)
[2022-04-23 08:39] VITALS: BP 130/84; PULSE 87; RESP 16; TEMP 36.3; O2SAT 98
[2022-04-23] MEDS: LORazepam 0.5 MG TABLET PO ×2 (08:40→22:11)
[2022-04-23] MEDS: Fluticasone Propionate Nasal 16 GM SPRAY 1 SPRAY NOSTRIL-B (08:42)
--- NOTE | 2022-04-23 14:41 | PC.NURSE ---
Patient offered flu vaccine, patient declined.
--- NOTE | 2022-04-23 15:23 | HO.PSYCHPN ---
Subjective Subjective Date of Service: 04/23/22 Reason For Visit: SI, Depression Interim History: calm, cooperative. periods of delayed responses, unclear if PMR or internal stimuli. states she is feeling more focused on the risperidone. denies SI. long discussion with SW about her caretakers outside the hospital and dispo planning. per staff, anxious and depresssed. denies SI/HI/AVH. delayed, thoguhty blocking. reserved, keeps to herself. med-compliant. eating well. Mental Status Exam Mental Status Exam Narrative: Appearance: wearing hospital gown, fair hygiene in NAD Behavior: guarded psychomotor:some retardation noted Speech: mumble, soft tone, minimally spontaneous Thought process: general linear in direct response to questions Thought content: no delusions or paranoia expressed Mood: not assessed Affect: constricted, at times smiling for no apparent reason as if responding to internal stimuli SI:none expressed HI:none expressed VH/AH: none expressed Delusions:appears paranoid Insight/judgment:poor x 2. Memory/cog: alert, oriented x3. not formally tested Diagnostics Vital Signs (24Hr): Vital Signs - 24 hr 04/22/22 20:54 04/23/22 08:39 Temperature 97.6 F 97.4 F Pulse Rate 104 H 87 Respiratory Rate 16 16 Blood Pressure 122/81 130/84 Pulse Oximetry 98 98 Oxygen Delivery Method Room Air Room Air BMI result Body Mass Index 21.4 Labs Results: 04/19/22 14:22 04/19/22 14:22 Medications Medications Current Medications Acetaminophen (Acetaminophen 325 Mg Tablet) 650 mg PO Q8H PRN PRN Reason: Pain, Moderate (Pain Scale 4-6 Al Hydroxide/Mg Hydroxide (Magnesium Hydrox/Alum Hydrox 30 Ml Oral.Susp) 30 ml PO Q6H PRN PRN Reason: Heartburn/Nausea Albuterol Sulfate (Albuterol Sulfate 90 Mcg 8 Gm Inhaler) 2 puff INHALE QID PRN PRN Reason: Wheezing Fluticasone Propionate (Fluticasone Propionate Nasal 16 Gm [place]) 1 spray NOSTRIL-B BID [facility] Last Admin: 04/23/22 08:42 Dose: 1 spray Hydroxyzine HCl (Hydroxyzine Hcl 25 Mg Tablet) 25 mg PO Q6H PRN PRN Reason: Anxiety Last Admin: 04/19/22 23:13 Dose: 25 mg Lorazepam (Lorazepam 0.5 Mg Tablet) 0.5 mg PO BID [facility] Last Admin: 04/23/22 08:40 Dose: 0.5 mg Magnesium Hydroxide (Milk Of Magnesia 30 Ml Oral.Susp) 30 ml PO DAILY PRN PRN Reason: Constipation Risperidone (Risperidone 2 Mg Tablet) 2 mg PO BEDTIME [facility] Last Admin: 04/22/22 21:41 Dose: 2 mg Trazodone HCl (Trazodone Hcl 50 Mg Tablet) 50 mg PO BEDTIME PRN PRN Reason: Insomnia Allergies Allergies Allergy/AdvReac Type Severity Reaction Status Date / Time banana Allergy Unknown Verified 04/19/22 13:45 grape Allergy Unknown Verified 04/19/22 13:45 shellfish derived Allergy Anaphylaxis Verified 04/19/22 13:45 Assessment & Plan Assessment & Plan (1) Schizophrenia: Status: Acute Code(s): F20.9 - Schizophrenia, unspecified Plan Ms. Castellano is a 41 year-old woman with hx of schizophrenia. Per [facility] records she initially called [facility] reporting suicidal ideation. Her reports as to why she feels depressed and other factors affecting her mood were vague, and she appeared internally preoccupied. In the ED utox negative. On the unit presents as guarded suspicious with episodes of laughing inappropriately at times, appears internally preoccupied. EKG showed septal infarct, troponin completed less than 3.5, no s/s of acute pathology at this point. We discussed risks, benefits and alternative treatment options, will start risperidone, ativan. 04/20: started risperidone 1mg po BID, ativan 0.5mg po BID on admission. 04/21 - 04/22: Risperdal changed to 2 mg po qhs 04/23: improved from saturday, still with delayed responses and presumed psychosis. feeling more focused since starting risperidone. continue current mgmt. I spent ___35___ minutes with the patient and/or on the patient floor today, greater than?50% of which was spent counseling/coordinating care. Reason for contiued inpatient stay Substantial Risk for: inability to function and rapid decompensation
[2022-04-23 20:15] VITALS: BP 142/93; PULSE 92; RESP 16; TEMP 36.6; O2SAT 97
[2022-04-23 22:04] VITALS: BP 124/63; PULSE 84; RESP 16
[2022-04-23] MEDS: risperiDONE 2 MG TABLET PO (22:11)
[2022-04-24 07:58] VITALS: BP 120/81; PULSE 81; RESP 17; TEMP 36.6; O2SAT 100
[2022-04-24] MEDS: Fluticasone Propionate Nasal 16 GM SPRAY 1 SPRAY NOSTRIL-B ×2 (08:01→21:38)
[2022-04-24] MEDS: LORazepam 0.5 MG TABLET PO ×2 (08:01→21:39)
--- NOTE | 2022-04-24 15:01 | P.PNPSI_ITS ---
Subjective Subjective Date of Service: 04/24/22 Reason For Visit: SI, Depression Interim History: reports feeling pretty good. denies SI/HI/AVH. states she is tolerating risperidone well and is not having any side effects or complaints. sleeping, eating, toileting well. planning for discharge tomorrow at maturation of her 3- day notice. per staff, suspicious, paranoid, guarded. visible, isolative. sindy, delayed responses. attending groups. taking meds and eating meals. slep t well overnight. Mental Status Exam Mental Status Exam Narrative: Appearance: adequately dressed, fair hygiene in NAD Behavior: guarded psychomotor:some retardation noted Speech: soft tone, minimally spontaneous Thought process: general linear in direct response to questions Thought content: no delusions or paranoia expressed Mood: pretty good Affect: constricted, at times smiling for no apparent reason as if responding to internal stimuli SI:none HI:none VH/AH: none Delusions:appears paranoid Insight/judgment:poor x 2. Memory/cog: alert, oriented x3. not formally tested Diagnostics Vital Signs (24Hr): Vital Signs - 24 hr 04/23/22 20:15 04/23/22 22:04 04/24/22 07:58 Temperature 97.8 F 97.9 F Pulse Rate 92 84 81 Respiratory Rate 16 16 17 Blood Pressure 142/93 H 124/63 120/81 Pulse Oximetry 97 100 Oxygen Delivery Method Room Air Room Air BMI result Body Mass Index 21.4 Labs Results: 04/19/22 14:22 04/19/22 14:22 Medications Medications Current Medications Acetaminophen (Acetaminophen 325 Mg Tablet) 650 mg PO Q8H PRN PRN Reason: Pain, Moderate (Pain Scale 4-6 Al Hydroxide/Mg Hydroxide (Magnesium Hydrox/Alum Hydrox 30 Ml Oral.Susp) 30 ml PO Q6H PRN PRN Reason: Heartburn/Nausea Albuterol Sulfate (Albuterol Sulfate 90 Mcg 8 Gm Inhaler) 2 puff INHALE QID PRN PRN Reason: Wheezing Fluticasone Propionate (Fluticasone Propionate Nasal 16 Gm [place]) 1 spray NOSTRIL-B BID [facility] Last Admin: 04/24/22 08:01 Dose: 1 spray Hydroxyzine HCl (Hydroxyzine Hcl 25 Mg Tablet) 25 mg PO Q6H PRN PRN Reason: Anxiety Last Admin: 04/19/22 23:13 Dose: 25 mg Lorazepam (Lorazepam 0.5 Mg Tablet) 0.5 mg PO BID [facility] Last Admin: 04/24/22 08:01 Dose: 0.5 mg Magnesium Hydroxide (Milk Of Magnesia 30 Ml Oral.Susp) 30 ml PO DAILY PRN PRN Reason: Constipation Risperidone (Risperidone 2 Mg Tablet) 2 mg PO BEDTIME [facility] Last Admin: 04/23/22 22:11 Dose: 2 mg Trazodone HCl (Trazodone Hcl 50 Mg Tablet) 50 mg PO BEDTIME PRN PRN Reason: Insomnia Allergies Allergies Allergy/AdvReac Type Severity Reaction Status Date / Time banana Allergy Unknown Verified 04/19/22 13:45 grape Allergy Unknown Verified 04/19/22 13:45 shellfish derived Allergy Anaphylaxis Verified 04/19/22 13:45 Assessment & Plan Assessment & Plan (1) Schizophrenia: Status: Acute Code(s): F20.9 - Schizophrenia, unspecified Plan Ms. Castellano is a 41 year-old woman with hx of schizophrenia. Per [facility] records she initially called [facility] reporting suicidal ideation. Her reports as to why she feels depressed and other factors affecting her mood were vague, and she appeared internally preoccupied. In the ED utox negative. On the unit presents as guarded suspicious with episodes of laughing inappropriately at times, appears internally preoccupied. EKG showed septal infarct, troponin completed less than 3.5, no s/s of acute pathology at this point. We discussed risks, benefits and alternative treatment options, will start risperidone, ativan. 04/20: started risperidone 1mg po BID, ativan 0.5mg po BID on admission. 04/21 - 04/22: Risperdal changed to 2 mg po qhs 04/23: improved from saturday, still with delayed responses and presumed psychosis. feeling more focused since starting risperidone. continue current mgmt. 04/24: similar to yesterday, perhaps slightly improved in terms of less PMR and more verbal. no side effects, tolerating regimen. 3-day notice matures tomorrow, planning for discharge. I spent __20____ minutes with the patient and/or on the patient floor today, greater than?50% of which was spent counseling/coordinating care. Reason for contiued inpatient stay Substantial Risk for: inability to function and rapid decompensation
--- NOTE | 2022-04-24 18:32 | PC.NURSE ---
Patient wanted these numbers in her chart. Margoth (her therapist) [phone] Deepti (helps her with rides) [phone]
[2022-04-24] MEDS: risperiDONE 2 MG TABLET PO (21:39)
[2022-04-24 21:41] VITALS: BP 133/83; PULSE 91; TEMP 36.8; O2SAT 99
[2022-04-25 08:24] VITALS: BP 118/73; PULSE 82; TEMP 36.6; O2SAT 100
[2022-04-25] MEDS: LORazepam 0.5 MG TABLET PO (08:38)
[2022-04-25] MEDS: Fluticasone Propionate Nasal 16 GM SPRAY 1 SPRAY NOSTRIL-B (08:38)
--- NOTE | 2022-04-25 10:52 | P.DS_ITS ---
DS: Providers Provider Date of Service: 04/25/22 Date of admission: 04/19/22 20:12 Primary care physician: Nonstaff Physician DS: Diagnosis Discharge Diagnosis (1) Schizophrenia: Status: Acute DS: Medications Discharge Medications Home Medications: Home Medications Medication Instructions Recorded Confirmed Acetaminophen Er 650 mg PO Q8H PRN Pain 04/19/22 04/19/22 albuterol sulfate 90 mcg/actuation 2 puff inhalation QID PRN Wheezing 04/19/22 04/19/22 aerosol inhaler epinephrine 0.3 mg/0.3 mL 0.3 mg IM Q4H PRN Anaphylaxis 04/19/22 04/19/22 injection, auto-injector fluticasone propionate 50 1 spray intranasal BID 04/19/22 04/19/22 mcg/actuation nasal spray,suspension Previous Rx's Medication Instructions Recorded lorazepam 0.5 mg tablet 0.5 mg PO BID 7 days #14 tabs 04/25/22 risperidone 2 mg tablet 2 mg PO BEDTIME 30 days #30 tabs 04/25/22 trazodone 50 mg tablet 50 mg PO BEDTIME PRN Insomnia 30 04/25/22 days #30 tabs Mental Status Exam Mental Status Exam Narrative: Appearance: adequately dressed, fair hygiene in NAD Behavior: guarded psychomotor:some retardation noted Speech: soft tone, minimally spontaneous Thought process: general linear in direct response to questions Thought content: no delusions or paranoia expressed Mood: OK Affect: generally constricted, at times smiling for no apparent reason as if responding to internal stimuli SI:none HI:none VH/AH: none Delusions:appears paranoid Insight/judgment:poor x 2. Memory/cog: alert, oriented x3. not formally tested Data Data Completed and Pending Completed studies during hospitalization [Text1]: 04/19/22 04/19/22 04/19/22 14:08 14:08 14:08 WBC RBC Hgb Hct MCV MCH MCHC RDW Plt Count MPV Immature Gran % (Auto) Neut % (Auto) Lymph % (Auto) [place] % (Auto) Eos % (Auto) Baso % (Auto) Lymph # (Auto) [place] # (Auto) Eos # (Auto) Baso # (Auto) Abs Immat Gran (auto) Absolute Neuts (auto) Absolute Nucleated RBC Nucleated RBC % (auto) Sodium Potassium Chloride Carbon Dioxide Anion Gap BUN Creatinine Estim Creat Clear Calc Estimated GFR Random Glucose Estimat Average Glucose Hemoglobin A1c % Calcium Magnesium Total Bilirubin AST ALT Alkaline Phosphatase Troponin I High Sens Total Protein Albumin Triglycerides Cholesterol LDL Cholesterol, Calc HDL Cholesterol Vitamin B12 Folate TSH Free T4 Urine Color Yellow Urine Appearance Clear Urine pH 5.5 Ur Specific [place] 1.025 Urine Protein Trace Urine Glucose (UA) Negative Urine Ketones 15 Urine Blood Trace H Urine Nitrite Negative Ur Leukocyte Esterase Negative Urine RBC 6-10 H Urine WBC 0-5 Ur Squamous Epith Cells 3-5 Urine Bacteria Trace Hyaline Casts 0-2 Urine Test NEGATIVE Urine Opiates Screen Urine Fentanyl Screen Ur Barbiturates Screen Ur Phencyclidine Scrn Ur Amphetamines Screen U Benzodiazepines Scrn Urine Cocaine Screen U Marijuana (THC) Screen Ethyl Alcohol COVID-19 ([facility]) Negative COVID-19 Clin Com See Note 04/19/22 04/19/22 04/19/22 14:08 14:22 14:22 WBC 4.4 L RBC 5.18 Hgb 14.9 Hct 45.3 MCV 87.5 MCH 28.8 MCHC 32.9 RDW 13.7 Plt Count 332 MPV 10.3 Immature Gran % (Auto) 0.2 Neut % (Auto) 55.6 Lymph % (Auto) 32.5 [place] % (Auto) 8.8 Eos % (Auto) 1.8 Baso % (Auto) 1.1 Lymph # (Auto) 1.4 [place] # (Auto) 0.4 Eos # (Auto) 0.1 Baso # (Auto) 0.1 Abs Immat Gran (auto) 0.01 Absolute Neuts (auto) 2.5 Absolute Nucleated RBC 0.000 Nucleated RBC % (auto) 0.0 Sodium 141 Potassium 3.8 Chloride 104 Carbon Dioxide 24 Anion Gap 17 BUN 14 Creatinine 0.83 Estim Creat Clear Calc 64.0 Estimated GFR > 60 Random Glucose 90 Estimat Average Glucose Hemoglobin A1c % Calcium 9.6 Magnesium Total Bilirubin 0.6 AST 15 ALT 15 Alkaline Phosphatase 70 Troponin I High Sens Total Protein 7.5 Albumin 4.4 Triglycerides Cholesterol LDL Cholesterol, Calc HDL Cholesterol Vitamin B12 Folate TSH Free T4 Urine Color Urine Appearance Urine pH Ur Specific [place] Urine Protein Urine Glucose (UA) Urine Ketones Urine Blood Urine Nitrite Ur Leukocyte Esterase Urine RBC Urine WBC Ur Squamous Epith Cells Urine Bacteria Hyaline Casts Urine Test Urine Opiates Screen Not Detected Urine Fentanyl Screen Not Detected Ur Barbiturates Screen Not Detected Ur Phencyclidine Scrn Not Detected Ur Amphetamines Screen Not Detected U Benzodiazepines Scrn Not Detected Urine Cocaine Screen Not Detected U Marijuana (THC) Screen Not Detected Ethyl Alcohol < 10 COVID-19 ([facility]) COVID-19 Clin Com 04/20/22 04/20/22 04/20/22 08:48 08:48 08:48 WBC RBC Hgb Hct MCV MCH MCHC RDW Plt Count MPV Immature Gran % (Auto) Neut % (Auto) Lymph % (Auto) [place] % (Auto) Eos % (Auto) Baso % (Auto) Lymph # (Auto) [place] # (Auto) Eos # (Auto) Baso # (Auto) Abs Immat Gran (auto) Absolute Neuts (auto) Absolute Nucleated RBC Nucleated RBC % (auto) Sodium Potassium Chloride Carbon Dioxide Anion Gap BUN Creatinine Estim Creat Clear Calc Estimated GFR Random Glucose Estimat Average Glucose 114 Hemoglobin A1c % 5.6 Calcium Magnesium 1.9 Total Bilirubin AST ALT Alkaline Phosphatase Troponin I High Sens Total Protein Albumin Triglycerides 50 Cholesterol 179 LDL Cholesterol, Calc 121 HDL Cholesterol 48 Vitamin B12 375 Folate 9.8 TSH 0.74 Free T4 1.19 Urine Color Urine Appearance Urine pH Ur Specific [place] Urine Protein Urine Glucose (UA) Urine Ketones Urine Blood Urine Nitrite Ur Leukocyte Esterase Urine RBC Urine WBC Ur Squamous Epith Cells Urine Bacteria Hyaline Casts Urine Test Urine Opiates Screen Urine Fentanyl Screen Ur Barbiturates Screen Ur Phencyclidine Scrn Ur Amphetamines Screen U Benzodiazepines Scrn Urine Cocaine Screen U Marijuana (THC) Screen Ethyl Alcohol COVID-19 ([facility]) COVID-19 Clin Com 04/20/22 14:30 WBC RBC Hgb Hct MCV MCH MCHC RDW Plt Count MPV Immature Gran % (Auto) Neut % (Auto) Lymph % (Auto) [place] % (Auto) Eos % (Auto) Baso % (Auto) Lymph # (Auto) [place] # (Auto) Eos # (Auto) Baso # (Auto) Abs Immat Gran (auto) Absolute Neuts (auto) Absolute Nucleated RBC Nucleated RBC % (auto) Sodium Potassium Chloride Carbon Dioxide Anion Gap BUN Creatinine Estim Creat Clear Calc Estimated GFR Random Glucose Estimat Average Glucose Hemoglobin A1c % Calcium Magnesium Total Bilirubin AST ALT Alkaline Phosphatase Troponin I High Sens < 3.5 Total Protein Albumin Triglycerides Cholesterol LDL Cholesterol, Calc HDL Cholesterol Vitamin B12 Folate TSH Free T4 Urine Color Urine Appearance Urine pH Ur Specific [place] Urine Protein Urine Glucose (UA) Urine Ketones Urine Blood Urine Nitrite Ur Leukocyte Esterase Urine RBC Urine WBC Ur Squamous Epith Cells Urine Bacteria Hyaline Casts Urine Test Urine Opiates Screen Urine Fentanyl Screen Ur Barbiturates Screen Ur Phencyclidine Scrn Ur Amphetamines Screen U Benzodiazepines Scrn Urine Cocaine Screen U Marijuana (THC) Screen Ethyl Alcohol COVID-19 ([facility]) COVID-19 Clin Com DS: Summary Hospital Course Hospital Course: per 04/20 admission note: Ms. Castellano is a 41 year-old woman with hx of schizophrenia. Pt was assessed by [facility] crisis after she called them and reported struggling with life, something is not right. Pt expressed suicidal ideation with vague plan. However, pt apparently presented as disorganized, delayed response rate, internally preoccupied. Her utox was neg in ED. 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 She is at times seen laughing inappropriately. She is very suspicious about medications. She reports she was feeling depressed, I was going through somethings. She would not elaborate as to what stressors she had. She then reports when can I go home? She denies VH/AH but appears internally preoccupied. Her speech is disorganized and she is unable to provide much information about events leading to this admission or past psychiatric history or her current supports in the community. She denies any plan or intent to hurt herself. Pt often scanning the room, guarded when staff approaches her, somewhat hypervigilant, but no overt delusional content reported. Past Psychiatric History: Inpatient: 2000, 1998 somewhere in [place].? Respite N: 04/07-04/10 left AMA. Medical Evaluation Reviewed: Yes repeat EGK- shows septal infact no s/s of acute infart- did order troponin <3.5 PMFSH Family History: unknown Social History: lives along in apartment. She has never been nor she has children. Apparently she does work at [employer]. Substance History: none Trauma History: none disclosed. Precis: Ms. Castellano is a 41 year-old woman with hx of schizophrenia. Per [facility] records she initially called [facility] reporting suicidal ideation. Her reports as to why she feels depressed and other factors affecting her mood were vague, and she appeared internally preoccupied. In the ED utox negative. On the unit presents as guarded suspicious with episodes of laughing inappropriately at times, appears internally preoccupied. EKG showed septal infarct, troponin completed less than 3.5, no s/s of acute pathology at this point. We discussed risks, benefits and alternative treatment options, will start risperidone, ativan. 04/20:? started risperidone 1mg po BID, ativan 0.5mg po BID on admission. 04/21 - 04/22:? Risperdal changed to 2 mg po qhs 04/23: improved from saturday, still with delayed responses and presumed psychosis.? feeling more focused since starting risperidone.? continue current mgmt. 04/24: similar to yesterday, perhaps slightly improved in terms of less PMR and more verbal.? no side effects, tolerating regimen.? 3-day notice rajendras matt earl, planning for discharge. 04/25: similar presentation as yesterday. still some delay, cryptic smiles. but linear and logical in interactions, if interactions are somewhat unusual. safe, discharged to outpt care. Time Spent with Patient Time attestation: Total time spent providing and/or coordinating discharge services: Time spent: Greater than 30 minutes Discharge Plan Discharge Anticipated Discharge Date/Time: 04/25/22 13:00 Patient Disposition: Home, Self-Care Discharge Diagnosis: Schizophrenia Referrals: Kavita Roberts (Psychiatry) [Other] - 05/01/22 9:00 am (IN OFFICE APPOINTMENT ) Josefina Ramos (Therapy) [Other] - 04/27/22 10:00 am () [facility] [Other] - 1 Week (OFFICE WILL CALL PATIENT.) Discharge Medications: New trazodone 50 mg Tablet 50 mg PO BEDTIME PRN (Reason: Insomnia) 30 Days Qty: 30 0RF risperidone 2 mg Tablet 2 mg PO BEDTIME 30 Days Qty: 30 0RF lorazepam 0.5 mg Tablet 0.5 mg PO BID 7 Days Qty: 14 0RF Continued Acetaminophen Er 650 mg PO Q8H PRN (Reason: Pain) epinephrine 0.3 mg/0.3 mL Auto-Injector 0.3 mg IM Q4H PRN (Reason: Anaphylaxis) albuterol sulfate 90 mcg/actuation Hfa Aerosol Inhaler 2 puff INHALATION QID PRN (Reason: Wheezing) fluticasone propionate 50 mcg/actuation [place],Suspension 1 spray INTRANASAL BID Rx Instructions: administer into each nostril Discontinued aripiprazole [Abilify] 5 mg Tablet 5 mg PO DAILY Discharge Orders: Discharge Order (Routine); Ordered 04/25/22 Ordered By: Ab Olmos Diet: Advance to usual diet Activity on Discharge: As tolerated Stand Alone Forms: Patient Portal Discharge page, Community Support Care Plan Goals: remain safe and stable in the outpatient treatment setting Health Concerns: none Plan of Treatment: take medications as prescribed, attend appointments as scheduled Assessment: not at imminent risk of harm to self or others Discharge Date/Time: 04/25/22 13:10
== END 2022-04-25 13:10 | disposition home or self-care (01) | DRG 885 ==
LOC: HO.ED 20:01 → HO.PADLT16 20:18
PROVIDERS: Nurse Practitioner Family; Social Worker; Admitting Provider Registered Nurse; Emergency Provider Emergency Medicine; Visit Provider Psychiatry & Neurology Psychiatry
DX: F20.9 Schizophrenia, unspecified (principal); R45.851 Suicidal ideations; F43.10 Post-traumatic stress disorder, unspecified; Z20.822 Contact with and (suspected) exposure to COVID-19; Z23 Encounter for immunization; Z91.013 Allergy to seafood; Z79.51 Long term (current) use of inhaled steroids; Z79.899 Other long term (current) drug therapy
CPT/HCPCS: 36415; 80053; 80061; 80307; 81001; 81025; 82077; 82607; 82746; 83036; 83735; 84439; 84443; 84484; 85025; 87635; 90686; 93005; 99285

== ENCOUNTER 2022-06-03 13:07 | Emergency (ER) | payer MEDICARE, MEDICAID, SELFPAY ==
--- NOTE | 2022-06-03 | ECG_ITS ---
Test Reason : MED CLEARANCE TO M3 UNDER 50 Blood Pressure : / mmHG Vent. Rate : 059 BPM Atrial Rate : 059 BPM P-R Int : 132 ms QRS Dur : 082 ms QT Int : 398 ms P-R-T Axes : 069 -11 045 degrees QTc Int : 394 ms Sinus bradycardia Low voltage QRS Borderline ECG When compared with ECG of 20-APR-2022 14:14, Heart rate has decreased Referred By: Desiree Cook Electronically Signed By:BOY HENDERSON MD
[2022-06-03 13:15] VITALS: BP 126/68; PULSE 66; O2SAT 97
[2022-06-03 13:16] VITALS: BMI 23.0
[2022-06-03 13:21] VITALS: BP 128/84; PULSE 65; RESP 18; TEMP 36.5; O2SAT 99
--- NOTE | 2022-06-03 13:32 | PC.NURSE ---
Pt is a section 12 from N in the community. Pt has a flat affect and appears to be suspicious of pod change consultant process. Pt reports no longer taking her home medications but being unsure which medications they were.
--- NOTE | 2022-06-03 13:44 | ED.PSYCH ---
HPI - Psych General Chief Complaint: Psychiatric Symptoms <Lori Bean NP - Last Filed: 06/03/22 20:43> Stated Complaint: section 12 <Lori Bean NP - Last Filed: 06/03/22 20:43> Time Seen by Provider: 06/03/22 13:41 <Lori Bean NP - Last Filed: 06/03/22 20:43> Source: patient and EMS <Lori Bean NP - Last Filed: 06/03/22 20:43> Mode of arrival: EMS <Lori Bean NP - Last Filed: 06/03/22 20:43> Limitations: no limitations <Lori Bean NP - Last Filed: 06/03/22 20:43> History of Present Illness HPI Narrative: 41-year-old female with a history of PTSD, schizophrenia, anxiety, depression presents with EMS on a Section 12 from crisis. Patient states I dont feel safe. Patient denies suicidal homicidal ideations. No hallucinations. No substance use. No physical complaints. I spoke to crisis the phone. Patient will be re-evaluated as follow-up in the morning <Lori Bean NP - Last Filed: 06/03/22 20:43> Related Data Home Medications: Home Medications Medication Instructions Recorded Confirmed Acetaminophen Er 650 mg PO Q8H PRN Pain 04/19/22 06/03/22 albuterol sulfate 90 mcg/actuation 2 puff inhalation QID PRN Wheezing 04/19/22 06/03/22 aerosol inhaler epinephrine 0.3 mg/0.3 mL 0.3 mg IM Q4H PRN Anaphylaxis 04/19/22 06/03/22 injection, auto-injector fluticasone propionate 50 1 spray intranasal BID 04/19/22 06/03/22 mcg/actuation nasal spray,suspension aripiprazole 5 mg tablet 5 mg PO DAILY 06/03/22 06/03/22 Previous Rx's Medication Instructions Recorded lorazepam 0.5 mg tablet 0.5 mg PO BID 7 days #14 tabs 04/25/22 risperidone 2 mg tablet 2 mg PO BEDTIME 30 days #30 tabs 04/25/22 trazodone 50 mg tablet 50 mg PO BEDTIME PRN Insomnia 30 04/25/22 days #30 tabs <Lori Bean NP - Last Filed: 06/03/22 20:43> Allergies/Adverse Reactions: Allergies Allergy/AdvReac Type Severity Reaction Status Date / Time banana Allergy Unknown Verified 06/03/22 13:26 grape Allergy Unknown Verified 06/03/22 13:26 shellfish derived Allergy Anaphylaxis Verified 06/03/22 13:26 <Lori eBan NP - Last Filed: 06/03/22 20:43> Review of Systems Review of Systems: Yes all other systems are reviewed and are negative <Lori Bean NP - Last Filed: 06/03/22 20:43> Constitutional: Constitutional: Reports no additional constitutional complaints, Denies body ache(s), Denies chills, Denies fever(s), Denies headache(s) and Denies weakness <Lori Bean NP - Last Filed: 06/03/22 20:43> Eyes: Eyes: Reports no additional eye complaints and Denies change in vision <Lori Bean NP - Last Filed: 06/03/22 20:43> ENT: Reports system reviewed and no additional complaints, except as documented, Denies dizziness, Denies headache(s), Denies nasal congestion, Denies nasal discharge and Denies neck pain <Lori Bean NP - Last Filed: 06/03/22 20:43> Cardiovascular: Cardiovascular: Reports no additional cardiovascular complaints, Denies chest pain, Denies leg edema and Denies dyspnea <Lori Bean NP - Last Filed: 06/03/22 20:43> Respiratory: Respiratory: Reports no additional respiratory complaints, Denies cough and Denies dyspnea <Lori Bean NP - Last Filed: 06/03/22 20:43> Gastrointestinal: Gastrointestinal: Reports no additional gastrointestinal complaints, Denies abdominal pain, Denies diarrhea, Denies nausea and Denies vomiting <Lroi Bean NP - Last Filed: 06/03/22 20:43> Genitourinary: Genitourinary: Reports no additional female genitourinary complaints and Denies urinary incontinence <Lori Bean NP - Last Filed: 06/03/22 20:43> Musculoskeletal: Musculoskeletal: Reports no additional musculoskeletal complaints, Denies back pain, Denies arthralgias, Denies joint swelling, Denies neck pain, Denies numbness and Denies tingling <Lori Bean NP - Last Filed: 06/03/22 20:43> Integumentary/Breasts: Skin/Breast: Reports system reviewed and no additional complaints, except as docu and Denies rash <Lori Bean NP - Last Filed: 06/03/22 20:43> Neurologic: Reports system reviewed and no additional complaints, except as documented, Denies Abnormal speech present, Denies dizziness, Denies headache(s), Denies numbness, Denies tingling and Denies weakness <Lori Bean NP - Last Filed: 06/03/22 20:43> Psychiatric: Psychiatric: Denies anxiety, Denies depression, Denies homicidal ideation and Denies suicidal ideation <Lori Bean NP - Last Filed: 06/03/22 20:43> [facility] Past Medical History Attestation statement: The following information was validated with the patient. <Lori Bean NP - Last Filed: 06/03/22 20:43> Source: old records reviewed and nursing notes reviewed <Lori Bean NP - Last Filed: 06/03/22 20:43> Social History Social History: Social History Household Members: Other Household Members Other:: Me and my dogs (s), and one cat. Housing: Apartment Do you presently have visiting nurse or other home services: No Alcohol intake: unknown Patient Tobacco Use Status: Never used Tobacco Smoked in Last 30 Days: No Use of substances other than those prescribed or required for medical reasons: No Advance Directives: No Advance Directives Information Provided: No Patient : No service: No Sexual orientation: Don't Know <Lori Bean NP - Last Filed: 06/03/22 20:43> Physical Exam Vital Signs: Vital Signs: Last Vital Signs Temp 98.6 F 06/04/22 07:52 Pulse 87 06/04/22 07:52 Resp 17 06/04/22 07:52 BP 103/70 06/04/22 07:52 Pulse Ox 98 06/04/22 07:52 O2 Del Method 06/04/22 07:52 BMI result Body Mass Index 23.0 <Lori Bean NP - Last Filed: 06/03/22 20:43> Vital Signs: Last Vital Signs Temp 98.6 F 06/04/22 07:52 Pulse 87 06/04/22 07:52 Resp 17 06/04/22 07:52 BP 103/70 06/04/22 07:52 Pulse Ox 98 06/04/22 07:52 O2 Del Method 06/04/22 07:52 BMI result Body Mass Index 23.0 <Alayna Blas MD - Last Filed: 06/04/22 11:00> Const: General: cooperative, healthy appearing, comfortable and no acute distress <Lori Bean NP - Last Filed: 06/03/22 20:43> Orientation/consciousness: patient oriented x3 <Lori Bean NP - Last Filed: 06/03/22 20:43> Limitations: no limitations <Lori Bean NP - Last Filed: 06/03/22 20:43> HEENT: Head: Yes normal to inspection <Lori Bean NP - Last Filed: 06/03/22 20:43> Ears: hearing grossly normal bilaterally <Lori Bean NP - Last Filed: 06/03/22 20:43> General nose exam: Normal external nose present <Lori Bean NP - Last Filed: 06/03/22 20:43> Face and sinus: Yes normal facial exam <Lori Bean NP - Last Filed: 06/03/22 20:43> Mouth: Normal oral and palatal mucosa present <Lori Bean NP - Last Filed: 06/03/22 20:43> Throat: Yes posterior oropharynx normal <Lori Bean NP - Last Filed: 06/03/22 20:43> Eyes: General: appearance normal, both eyes and all related structures <Lori Bean NP - Last Filed: 06/03/22 20:43> Pupils: Equal, round and reactive pupils present <Lori Bean NP - Last Filed: 06/03/22 20:43> Neck: Neck: Yes normal visual inspection <Lori Bean NP - Last Filed: 06/03/22 20:43> Chest: Chest palpation & inspection: normal inspection of the chest <Lori Bean NP - Last Filed: 06/03/22 20:43> Resp: Effort & Inspection: normal respiratory effort <Lori Bean LUBRICATING SPECIALIST - Last Filed: 06/03/22 20:43> Auscultation: clear to auscultation bilaterally <Lori Bean LUBRICATING SPECIALIST - Last Filed: 06/03/22 20:43> Cardio: Rate: regular rate <Lori Bean NP - Last Filed: 06/03/22 20:43> Rhythm: regular rhythm <Lori Bean LUBRICATING SPECIALIST - Last Filed: 06/03/22 20:43> Peripheral pulses: Peripheral pulses 2+ throughout <Lori Bean LUBRICATING SPECIALIST - Last Filed: 06/03/22 20:43> GI: Inspection: Yes normal to inspection <Lori Bean NP - Last Filed: 06/03/22 20:43> Palpation (GI): Soft to palpation and nontender <Lori Bean LUBRICATING SPECIALIST - Last Filed: 06/03/22 20:43> Auscultation: normal bowel sounds <Lori Bean NP - Last Filed: 06/03/22 20:43> Back/Spine/Pelvis: Thoracic/Lumbar Spine: thoracic and lumbar spine normal to inspection <Lori Bean NP - Last Filed: 06/03/22 20:43> Skin: General skin exam: no rashes or lesions noted <Lori Bean NP - Last Filed: 06/03/22 20:43> Neuro: General: patient oriented x3, no focal motor deficits and normal sensation to monofilament <Lori Bean NP - Last Filed: 06/03/22 20:43> Cranial nerves: Yes CN's II-XII intact bilaterally and Yes Equal, round and reactive pupils present <Lori Bean NP - Last Filed: 06/03/22 20:43> Cognition (Neuro): normal cognition <Lori Bean NP - Last Filed: 06/03/22 20:43> Speech: No Abnormal speech present <Lori Bean NP - Last Filed: 06/03/22 20:43> Gait exam (Neuro): Normal gait present <Lori Bean NP - Last Filed: 06/03/22 20:43> Motor exam (neuro): 5/5 motor strength present throughout <Lori Bean NP - Last Filed: 06/03/22 20:43> Extrem: General: Yes normal to inspection <Lori Bean NP - Last Filed: 06/03/22 20:43> Course Course Course Narrative: Patient placed in physician observation pending a crisis evaluation tomorrow. Patient has a UTI. Antibiotics ordered. Medications reconciled <Lori Bean NP - Last Filed: 06/03/22 20:43> Medications Administered Generic Name Dose Route Start Last Admin Trade Name Freq PRN Reason Stop Dose Admin Aripiprazole 5 mg 06/04/22 09:00 06/04/22 09:59 Aripiprazole 5 Mg Tablet PO 5 mg DAILY KIKI Administration Fluticasone Propionate 1 spray 06/03/22 21:00 06/04/22 09:59 Fluticasone Propionate Nasal 16 Gm [place] NOSTRIL-B 1 spray BID KIKI Administration Lorazepam 0.5 mg 06/03/22 21:00 06/04/22 09:59 Lorazepam 0.5 Mg Tablet PO 0.5 mg BID KIKI Administration Nitrofurantoin Macrocrystals 100 mg 06/03/22 21:00 06/04/22 10:11 Nitrofurantoin Monohyd/M-Cryst 100 Mg Capsule PO 06/08/22 09:01 100 mg BID KIKI Administration Risperidone 2 mg 06/03/22 21:00 06/03/22 21:11 Risperidone 2 Mg Tablet PO 2 mg BEDTIME KIKI Administration Trazodone HCl 50 mg 06/03/22 18:42 06/03/22 21:11 Trazodone Hcl 50 Mg Tablet PO 50 mg BEDTIME PRN Administration Insomnia <Lori Bean NP - Last Filed: 06/03/22 20:43> Medications Administered Generic Name Dose Route Start Last Admin Trade Name Eladia PRN Reason Stop Dose Admin Aripiprazole 5 mg 06/04/22 09:00 06/04/22 09:59 Aripiprazole 5 Mg Tablet PO 5 mg DAILY KIKI Administration Fluticasone Propionate 1 spray 06/03/22 21:00 06/04/22 09:59 Fluticasone Propionate Nasal 16 Gm [place] NOSTRIL-B 1 spray BID KIKI Administration Lorazepam 0.5 mg 06/03/22 21:00 06/04/22 09:59 Lorazepam 0.5 Mg Tablet PO 0.5 mg BID KIKI Administration Nitrofurantoin Macrocrystals 100 mg 06/03/22 21:00 06/04/22 10:11 Nitrofurantoin Monohyd/M-Cryst 100 Mg Capsule PO 06/08/22 09:01 100 mg BID KIKI Administration Risperidone 2 mg 06/03/22 21:00 06/03/22 21:11 Risperidone 2 Mg Tablet PO 2 mg BEDTIME KIKI Administration Trazodone HCl 50 mg 06/03/22 18:42 06/03/22 21:11 Trazodone Hcl 50 Mg Tablet PO 50 mg BEDTIME PRN Administration Insomnia <Alayna Blas MD - Last Filed: 06/04/22 11:00> MDM - Psych MDM Narrative Medical decision making narrative: 41-year-old female sent on a Section 12. Patient states she does not feel safe. Patient reports she has been noncompliant with her psychiatric medications for more than 3 weeks. No SI or HI. No hallucinations. No concern for acute ingestion or trauma. Will obtain drug screen, COVID screen, labs. Patient to be re-evaluated by crisis in the morning <Lori Bean NP - Last Filed: 06/03/22 20:43> 41-year-old female sent on a Section 12. Patient states she does not feel safe. Patient reports she has been noncompliant with her psychiatric medications for more than 3 weeks. No SI or HI. No hallucinations. No concern for acute ingestion or trauma. Will obtain drug screen, COVID screen, labs. Patient to be re-evaluated by crisis in the morning Patient is seen by crisis in the morning. Feel comfortable with discharging patient. Follow-up on an outpatient basis. In stable condition. <Alayna Blas MD - Last Filed: 06/04/22 11:00> Medical Records Attestation: I reviewed the patient's medical records. <Lori Bean NP - Last Filed: 06/03/22 20:43> Lab Data Attestation: I reviewed the patient's lab results. <Lori Bean NP - Last Filed: 06/03/22 20:43> Result diagrams: : 06/03/22 16:17 06/03/22 16:17 <Lori Bean NP - Last Filed: 06/03/22 20:43> Labs: Lab Results 06/03/22 06/03/22 06/03/22 Range/Units 13:40 16:09 16:09 WBC (4.8-10.8) X10*3/uL RBC (4.20-5.50) X10*6/uL Hgb (12.0-16.0) g/dl Hct (37.0-47.0) % MCV (80.0-98.0) fL MCH (27.0-33.0) pg MCHC (31.0-35.0) g/dl RDW (11.0-16.0) % Plt Count (160-400) X10*3/uL MPV (9.4-12.3) fL Immature Gran % (Auto) (0.0-0.4) % Neut % (Auto) (45-73) % Lymph % (Auto) (20-40) % Gage % (Auto) (2-11) % Eos % (Auto) (0-4) % Baso % (Auto) (0-2) % Lymph # (Auto) (1.2-4.9) X10*3/uL Gage # (Auto) (0.1-1.2) X10*3/uL Eos # (Auto) (0.0-0.4) X10*3/uL Baso # (Auto) (0.0-0.2) X10*3/uL Abs Immat Gran (auto) (0.00-0.03) X10*3/uL Absolute Neuts (auto) (2.0-8.3) x10*3/uL Absolute Nucleated RBC (0.0-0.012) X10*3/uL Nucleated RBC % (auto) (0.0-0.2) /100WBC Sodium (135-145) mmol/L Potassium (3.3-5.1) mmol/L Chloride (96-108) mmol/L Carbon Dioxide (22-29) mmol/L Anion Gap (12-20) BUN (9-16) mg/dL Creatinine (0.5-1.4) mg/dL Estim Creat Clear Calc Estimated GFR Random Glucose (60-115) mg/dL Calcium (8.4-10.2) mg/dL Total Bilirubin (0.0-1.0) mg/dL Direct Bilirubin (0.0-0.5) mg/dL AST (5-31) U/L ALT (0-31) U/L Alkaline Phosphatase (39-117) U/L Total Protein (6.5-8.0) g/dL Albumin (3.5-5.0) g/dL Urine Color Yellow Urine Appearance Clear Urine pH 7.0 (5.0-9.0) Ur Specific Breese 1.015 (1.005-1.025) Urine Protein Negative (Neg-Trace) mg/dL Urine Glucose (UA) Negative (Negative) mg/dL Urine Ketones Negative (Negative) mg/dL Urine Blood Negative (Negative) Urine Nitrite Negative (Negative) Ur Leukocyte Esterase Small (1+) H (Negative) Urine RBC 3-5 H (0-2) /HPF Urine WBC 6-10 H (0-5) /HPF Ur Squamous Epith Cells 6-10 (0-2) /HPF Urine Bacteria Trace (None Seen) Hyaline Casts 0-2 (0-2) /LPF Urine Test NEGATIVE (NEGATIVE) Urine Opiates Screen (Not Detect) Urine Fentanyl Screen (Not Detect) Ur Barbiturates Screen (Not Detect) Ur Phencyclidine Scrn (Not Detect) Ur Amphetamines Screen (Not Detect) U Benzodiazepines Scrn (Not Detect) Urine Cocaine Screen (Not Detect) U Marijuana (THC) Screen (Not Detect) COVID-19 (MELINA) Negative (Negative) COVID-19 Clin Com See Note 06/03/22 06/03/22 06/03/22 Range/Units 16:09 16:17 16:17 WBC 5.7 (4.8-10.8) X10*3/uL RBC 4.67 (4.20-5.50) X10*6/uL Hgb 13.9 (12.0-16.0) g/dl Hct 41.0 (37.0-47.0) % MCV 87.8 (80.0-98.0) fL MCH 29.8 (27.0-33.0) pg MCHC 33.9 (31.0-35.0) g/dl RDW 14.1 (11.0-16.0) % Plt Count 358 (160-400) X10*3/uL MPV 10.4 (9.4-12.3) fL Immature Gran % (Auto) 0.2 (0.0-0.4) % Neut % (Auto) 54.1 (45-73) % Lymph % (Auto) 32.3 (20-40) % Gage % (Auto) 9.9 (2-11) % Eos % (Auto) 2.3 (0-4) % Baso % (Auto) 1.2 (0-2) % Lymph # (Auto) 1.8 (1.2-4.9) X10*3/uL Gage # (Auto) 0.6 (0.1-1.2) X10*3/uL Eos # (Auto) 0.1 (0.0-0.4) X10*3/uL Baso # (Auto) 0.1 (0.0-0.2) X10*3/uL Abs Immat Gran (auto) 0.01 (0.00-0.03) X10*3/uL Absolute Neuts (auto) 3.1 (2.0-8.3) x10*3/uL Absolute Nucleated RBC 0.000 (0.0-0.012) X10*3/uL Nucleated RBC % (auto) 0.0 (0.0-0.2) /100WBC Sodium 140 (135-145) mmol/L Potassium 3.8 (3.3-5.1) mmol/L Chloride 104 (96-108) mmol/L Carbon Dioxide 24 (22-29) mmol/L Anion Gap 16 (12-20) BUN 13 (9-16) mg/dL Creatinine 0.83 (0.5-1.4) mg/dL Estim Creat Clear Calc 73.8 Estimated GFR > 60 Random Glucose 82 (60-115) mg/dL Calcium 9.1 (8.4-10.2) mg/dL Total Bilirubin 0.5 (0.0-1.0) mg/dL Direct Bilirubin 0.2 (0.0-0.5) mg/dL AST 12 (5-31) U/L ALT 10 (0-31) U/L Alkaline Phosphatase 75 (39-117) U/L Total Protein 7.1 (6.5-8.0) g/dL Albumin 4.0 (3.5-5.0) g/dL Urine Color Urine Appearance Urine pH (5.0-9.0) Ur Specific Breese (1.005-1.025) Urine Protein (Neg-Trace) mg/dL Urine Glucose (UA) (Negative) mg/dL Urine Ketones (Negative) mg/dL Urine Blood (Negative) Urine Nitrite (Negative) Ur Leukocyte Esterase (Negative) Urine RBC (0-2) /HPF Urine WBC (0-5) /HPF Ur Squamous Epith Cells (0-2) /HPF Urine Bacteria (None Seen) Hyaline Casts (0-2) /LPF Urine Test (NEGATIVE) Urine Opiates Screen Not Detected (Not Detect) Urine Fentanyl Screen Not Detected (Not Detect) Ur Barbiturates Screen Not Detected (Not Detect) Ur Phencyclidine Scrn Not Detected (Not Detect) Ur Amphetamines Screen Not Detected (Not Detect) U Benzodiazepines Scrn Not Detected (Not Detect) Urine Cocaine Screen Not Detected (Not Detect) U Marijuana (THC) Screen Not Detected (Not Detect) COVID-19 (MELINA) (Negative) COVID-19 Clin Com <Lori Bean, LUBRICATING SPECIALIST - Last Filed: 06/03/22 20:43> Lab Results 06/03/22 06/03/22 06/03/22 Range/Units 13:40 16:09 16:09 WBC (4.8-10.8) X10*3/uL RBC (4.20-5.50) X10*6/uL Hgb (12.0-16.0) g/dl Hct (37.0-47.0) % MCV (80.0-98.0) fL MCH (27.0-33.0) pg MCHC (31.0-35.0) g/dl RDW (11.0-16.0) % Plt Count (160-400) X10*3/uL MPV (9.4-12.3) fL Immature Gran % (Auto) (0.0-0.4) % Neut % (Auto) (45-73) % Lymph % (Auto) (20-40) % Gage % (Auto) (2-11) % Eos % (Auto) (0-4) % Baso % (Auto) (0-2) % Lymph # (Auto) (1.2-4.9) X10*3/uL Gage # (Auto) (0.1-1.2) X10*3/uL Eos # (Auto) (0.0-0.4) X10*3/uL Baso # (Auto) (0.0-0.2) X10*3/uL Abs Immat Gran (auto) (0.00-0.03) X10*3/uL Absolute Neuts (auto) (2.0-8.3) x10*3/uL Absolute Nucleated RBC (0.0-0.012) X10*3/uL Nucleated RBC % (auto) (0.0-0.2) /100WBC Sodium (135-145) mmol/L Potassium (3.3-5.1) mmol/L Chloride (96-108) mmol/L Carbon Dioxide (22-29) mmol/L Anion Gap (12-20) BUN (9-16) mg/dL Creatinine (0.5-1.4) mg/dL Estim Creat Clear Calc Estimated GFR Random Glucose (60-115) mg/dL Calcium (8.4-10.2) mg/dL Total Bilirubin (0.0-1.0) mg/dL Direct Bilirubin (0.0-0.5) mg/dL AST (5-31) U/L ALT (0-31) U/L Alkaline Phosphatase (39-117) U/L Total Protein (6.5-8.0) g/dL Albumin (3.5-5.0) g/dL Urine Color Yellow Urine Appearance Clear Urine pH 7.0 (5.0-9.0) Ur Specific Breese 1.015 (1.005-1.025) Urine Protein Negative (Neg-Trace) mg/dL Urine Glucose (UA) Negative (Negative) mg/dL Urine Ketones Negative (Negative) mg/dL Urine Blood Negative (Negative) Urine Nitrite Negative (Negative) Ur Leukocyte Esterase Small (1+) H (Negative) Urine RBC 3-5 H (0-2) /HPF Urine WBC 6-10 H (0-5) /HPF Ur Squamous Epith Cells 6-10 (0-2) /HPF Urine Bacteria Trace (None Seen) Hyaline Casts 0-2 (0-2) /LPF Urine Test NEGATIVE (NEGATIVE) Urine Opiates Screen (Not Detect) Urine Fentanyl Screen (Not Detect) Ur Barbiturates Screen (Not Detect) Ur Phencyclidine Scrn (Not Detect) Ur Amphetamines Screen (Not Detect) U Benzodiazepines Scrn (Not Detect) Urine Cocaine Screen (Not Detect) U Marijuana (THC) Screen (Not Detect) COVID-19 (MELINA) Negative (Negative) COVID-19 Clin Com See Note 06/03/22 06/03/22 06/03/22 Range/Units 16:09 16:17 16:17 WBC 5.7 (4.8-10.8) X10*3/uL RBC 4.67 (4.20-5.50) X10*6/uL Hgb 13.9 (12.0-16.0) g/dl Hct 41.0 (37.0-47.0) % MCV 87.8 (80.0-98.0) fL MCH 29.8 (27.0-33.0) pg MCHC 33.9 (31.0-35.0) g/dl RDW 14.1 (11.0-16.0) % Plt Count 358 (160-400) X10*3/uL MPV 10.4 (9.4-12.3) fL Immature Gran % (Auto) 0.2 (0.0-0.4) % Neut % (Auto) 54.1 (45-73) % Lymph % (Auto) 32.3 (20-40) % Gage % (Auto) 9.9 (2-11) % Eos % (Auto) 2.3 (0-4) % Baso % (Auto) 1.2 (0-2) % Lymph # (Auto) 1.8 (1.2-4.9) X10*3/uL Gage # (Auto) 0.6 (0.1-1.2) X10*3/uL Eos # (Auto) 0.1 (0.0-0.4) X10*3/uL Baso # (Auto) 0.1 (0.0-0.2) X10*3/uL Abs Immat Gran (auto) 0.01 (0.00-0.03) X10*3/uL Absolute Neuts (auto) 3.1 (2.0-8.3) x10*3/uL Absolute Nucleated RBC 0.000 (0.0-0.012) X10*3/uL Nucleated RBC % (auto) 0.0 (0.0-0.2) /100WBC Sodium 140 (135-145) mmol/L Potassium 3.8 (3.3-5.1) mmol/L Chloride 104 (96-108) mmol/L Carbon Dioxide 24 (22-29) mmol/L Anion Gap 16 (12-20) BUN 13 (9-16) mg/dL Creatinine 0.83 (0.5-1.4) mg/dL Estim Creat Clear Calc 73.8 Estimated GFR > 60 Random Glucose 82 (60-115) mg/dL Calcium 9.1 (8.4-10.2) mg/dL Total Bilirubin 0.5 (0.0-1.0) mg/dL Direct Bilirubin 0.2 (0.0-0.5) mg/dL AST 12 (5-31) U/L ALT 10 (0-31) U/L Alkaline Phosphatase 75 (39-117) U/L Total Protein 7.1 (6.5-8.0) g/dL Albumin 4.0 (3.5-5.0) g/dL Urine Color Urine Appearance Urine pH (5.0-9.0) Ur Specific Breese (1.005-1.025) Urine Protein (Neg-Trace) mg/dL Urine Glucose (UA) (Negative) mg/dL Urine Ketones (Negative) mg/dL Urine Blood (Negative) Urine Nitrite (Negative) Ur Leukocyte Esterase (Negative) Urine RBC (0-2) /HPF Urine WBC (0-5) /HPF Ur Squamous Epith Cells (0-2) /HPF Urine Bacteria (None Seen) Hyaline Casts (0-2) /LPF Urine Test (NEGATIVE) Urine Opiates Screen Not Detected (Not Detect) Urine Fentanyl Screen Not Detected (Not Detect) Ur Barbiturates Screen Not Detected (Not Detect) Ur Phencyclidine Scrn Not Detected (Not Detect) Ur Amphetamines Screen Not Detected (Not Detect) U Benzodiazepines Scrn Not Detected (Not Detect) Urine Cocaine Screen Not Detected (Not Detect) U Marijuana (THC) Screen Not Detected (Not Detect) COVID-19 (MELINA) (Negative) COVID-19 Clin Com <Alayna Blas MD - Last Filed: 06/04/22 11:00> ECG Data Attestation: I personally reviewed and interpreted this ECG as follows: <Lori Bean NP - Last Filed: 06/03/22 20:43> ECG interpretation date: 06/03/22 <Lori Bean NP - Last Filed: 06/03/22 20:43> ECG interpretation time: 14:16 <Lori Bean NP - Last Filed: 06/03/22 20:43> Interpretation: SB with rate 59, normal pr, normal qrs, normal qt <Lori Bean NP - Last Filed: 06/03/22 20:43> Discharge Plan Discharge Clinical Impression: Schizophrenia, UTI (urinary tract infection) <Lori Bean NP - Last Filed: 06/03/22 20:43> Patient Disposition: Home, Self-Care <Lori Bean NP - Last Filed: 06/03/22 20:43> Instructions: Schizophrenia (ED) <Lori Bean NP - Last Filed: 06/03/22 20:43> Prescriptions: No Action Acetaminophen Er 650 mg PO Q8H PRN (Reason: Pain) epinephrine 0.3 mg/0.3 mL Auto-Injector 0.3 mg IM Q4H PRN (Reason: Anaphylaxis) albuterol sulfate 90 mcg/actuation Hfa Aerosol Inhaler 2 puff INHALATION QID PRN (Reason: Wheezing) fluticasone propionate 50 mcg/actuation [place],Suspension 1 spray INTRANASAL BID Rx Instructions: administer into each nostril trazodone 50 mg Tablet 50 mg PO BEDTIME PRN (Reason: Insomnia) 30 Days Qty: 30 0RF risperidone 2 mg Tablet 2 mg PO BEDTIME 30 Days Qty: 30 0RF lorazepam 0.5 mg Tablet 0.5 mg PO BID 7 Days Qty: 14 0RF aripiprazole 5 mg tablet 5 mg PO DAILY <Lori Bean NP - Last Filed: 06/03/22 20:43> Referrals: Physician,Unknown J [Primary Care Provider] - (Follow-up as per PHN.) <Lori Bean NP - Last Filed: 06/03/22 20:43>
[2022-06-03 13:58] LABS: COVID-19 Test Negative (Negative); IDNOW Serial# 16C4AD1C
[2022-06-03 14:00] VITALS: RESP 18
[2022-06-03 16:29] LABS: MANUAL DIFF FLAG NO
[2022-06-03 16:30] LABS: Basophils Absolute Auto 0.1 X10*3/uL (0.0-0.2); Basophils Percent Auto 1.2 % (0-2); Eosinophils Absolute Auto 0.1 X10*3/uL (0.0-0.4); Eosinophils Percent Auto 2.3 % (0-4); Hemoglobin 13.9 g/dl (12.0-16.0); Imm Gran Abs Auto 0.01 X10*3/uL (0.00-0.03); Imm Gran Pct Auto 0.2 % (0.0-0.4); Lymphocytes Absolute Auto 1.8 X10*3/uL (1.2-4.9); Lymphocytes Percent Auto 32.3 % (20-40); Mean Corpuscular HGB Conc 33.9 g/dl (31.0-35.0); Mean Corpuscular Hemoglobin 29.8 pg (27.0-33.0); Mean Corpuscular Volume 87.8 fL (80.0-98.0); Mean Platelet Volume 10.4 fL (9.4-12.3); Monocytes Absolute Auto 0.6 X10*3/uL (0.1-1.2); Monocytes Percent Auto 9.9 % (2-11); Neutrophils Absolute Auto 3.1 x10*3/uL (2.0-8.3); Neutrophils Percent Auto 54.1 % (45-73); Platelet Count 358 X10*3/uL (160-400); Red Blood Count 4.67 X10*6/uL (4.20-5.50); Red Cell Distribution Width 14.1 % (11.0-16.0); White Blood Count 5.7 X10*3/uL (4.8-10.8)
[2022-06-03 16:32] LABS: Appearance Urine Clear; Color Urine Yellow; Glucose Urine UA Negative (Negative); Leukocyte Esterase Urine Small (1+) (Negative); Nitrite Urine Negative (Negative); Specific Gravity - Urine 1.015 (1.005-1.025); UMIC TRIGGER UACC YES; Urine Blood Negative (Negative); Urine Ketones Negative (Negative); Urine Protein Negative (Neg-Trace)
[2022-06-03 16:33] LABS: UPreg QC Valid YES; Urine Pregnancy NEGATIVE (NEGATIVE)
[2022-06-03 16:38] LABS: Bacteria Urine Trace (None Seen); Hyaline Casts Urine 0-2 /LPF (0-2); UACC Culture Trigger YES
[2022-06-03 16:49] LABS: Amphetamine Screen Urine Not Detected (Not Detect); Barbiturates, Urine Not Detected (Not Detect); Benzodiazepines Screen Urine Not Detected (Not Detect); Cannabinoid Screen Urine Not Detected (Not Detect); Cocaine Screen Urine Not Detected (Not Detect); Fentanyl, urine Not Detected (Not Detect); Opiate Screen Urine Not Detected (Not Detect); Phencyclidine Screen Urine Not Detected (Not Detect)
[2022-06-03 16:57] LABS: Alanine Aminotransferase 10 U/L (0-31); Alkaline Phosphatase 75 U/L (39-117); Anion Gap 16 (12-20); Aspartate Amino Transferase 12 U/L (5-31); Bilirubin Direct 0.2 mg/dL (0.0-0.5); Bilirubin Total 0.5 mg/dL (0.0-1.0); Blood Urea Nitrogen 13 mg/dL (9-16); Calcium 9.1 mg/dL (8.4-10.2); Carbon Dioxide 24 mmol/L (22-29); Chloride 104 mmol/L (96-108); Creatinine Clr Calc Pharmacy 73.8; Estimated Glomerular Filt Rate > 60; Glucose Random 82 mg/dL (60-115); Potassium 3.8 mmol/L (3.3-5.1); Sodium 140 mmol/L (135-145); Total Protein 7.1 g/dL (6.5-8.0)
[2022-06-03 18:00] VITALS: RESP 18
[2022-06-03] MEDS: traZODone HCL 50 MG TABLET PO (21:11)
[2022-06-03] MEDS: risperiDONE 2 MG TABLET PO (21:11)
[2022-06-03] MEDS: Nitrofurantoin Monohyd/M-Cryst 100 MG CAPSULE PO (21:11)
[2022-06-03] MEDS: LORazepam 0.5 MG TABLET PO (21:11)
[2022-06-04 05:32] VITALS: BP 108/70; PULSE 90; RESP 15; TEMP 36.8; O2SAT 98
--- NOTE | 2022-06-04 06:51 | PC.NURSE ---
Patient slept off/on during the night. She woke a few times to go to the BR. Gait steady. 15min checks done
[2022-06-04 07:52] VITALS: BP 103/70; PULSE 87; RESP 17; TEMP 37; O2SAT 98
[2022-06-04] MEDS: Fluticasone Propionate Nasal 16 GM SPRAY 1 SPRAY NOSTRIL-B (09:59)
[2022-06-04] MEDS: LORazepam 0.5 MG TABLET PO (09:59)
[2022-06-04] MEDS: ARIPiprazole 5 MG TABLET PO (09:59)
[2022-06-04] MEDS: Nitrofurantoin Monohyd/M-Cryst 100 MG CAPSULE PO (10:11)
== END 2022-06-04 12:32 | disposition home or self-care (01) ==
PROVIDERS: Nurse Practitioner Family; Emergency Provider Emergency Medicine
DX: F33.1 Major depressive disorder, recurrent, moderate (principal); N39.0 Urinary tract infection, site not specified; F25.9 Schizoaffective disorder, unspecified; Z20.822 Contact with and (suspected) exposure to COVID-19; Z91.14 Patient's other noncompliance with medication regimen; Z79.899 Other long term (current) drug therapy
CPT/HCPCS: 36415; 80048; 80076; 80307; 81001; 81025; 85025; 87086; 87147; 87635; 93005; 99285

== ENCOUNTER 2023-08-15 12:15 | Outpatient (RCR) | payer MEDICARE, MEDICAID, SELFPAY ==
--- NOTE | 2023-08-15 16:00 | HO.PHP ---
Following today?s processing group, Rowan requested to meet individually with a clinician. Rowan disclosed that she had difficulty following the content of the group and stated ? I don?t understand what?s happening here and I?m not sure what to do?. She was provided with education regarding group therapy and milieu norms however maintained that she was feeling uncertain of her experience in group. Rowan stated that she felt uncomfortable sharing within the group setting, and noted ?I don?t know? several times. Following this meeting clinical staff observed that Rowan had urinated on herself and the chair she occupied while attending the group. After briefly meeting with clinical staff for consultation, Rowan met individually with a [facility] clinician and tearfully noted that she initially had not been aware that she urinated herself, but upon later returning to the restroom had noticed that she was wet. Rowan and the clinical staff agreed that her pillowcase cutter, Lela Kilpatrick from [facility], would pick her up from the program and bring her home. Lela Kilpatrick was called and informed of the morning's events and agreed to bring Rowan home. Clinical staff remained with Rowan who was observed shaking, flapping her arms, and repeating the phrase ?I?m scared. I don?t understand what is happening?. Rowan was unable to respond to questions from clinical staff stating ?I don?t know. I?m scared. I don?t understand what is happening? to each question. During this interaction Rowan was observed urinating herself. Upon arrival to the program, Lela Kilpatrick noted that Rowan has historically become dysregulated while attending therapeutic programs and has ?acted- out repeatedly in the past?. When asked about her experiences thus far at the [facility] Rowan stated that she was scared and did not know whether she would like to continue. Clinical staff made the recommendation that Rowan be referred to a day treatment program that could better meet her present treatment needs. Lela Kilpatrick stated that she wanted to consult with Rowan privately before committing to next steps in treatment and she and Rowan left the program.? An hour later? clinical staff contacted Rowan via phone and left a voice message. Later in the day staff contacted Rowan by phone and Rowan maintained that she did not know if she would like to attend the program. After further discussion of her present treatment need it was determined that Rowan would be discharged from the [facility] and would seek out treatment with either the [facility] or [facility]. Rowan was receptive to information on these programming options. Rowan verbally contracted for safety denying suicidal ideation. Lela Kilpatrick was contacted for further consultation and was additionally provided with information regarding referrals to [facility] and noted that she would further assist completing the referral and help Rowan access their services.
== END 2023-08-15 23:59 | disposition home or self-care (01) ==
LOC: HO.PHPA 12:15
PROVIDERS: Visit Provider Psychiatry & Neurology Psychiatry
DX: F33.3 Major depressive disorder, recurrent, severe with psychotic symptoms (principal); F79 Unspecified intellectual disabilities
CPT/HCPCS: 90791; 90853